=== PATIENT | female | born 1960 | race Caucasian/White ===

== ENCOUNTER 2017-07-25 06:06 | Day surgery (SDC) | payer BC ==
[2017-07-23 14:21] VITALS: BMI 26.9
[~2017-07-25 06:06] MED LIST: LACTATED RINGERS 1,000 ML IV SCH
[2017-07-25 07:02] VITALS: RESP 16; TEMP 98.6
[2017-07-25 07:14] LABS: Glucose,Whole Blood 110 mg/dL (75-99)
[2017-07-25] MEDS ORDERED: PROPOFOL 10 MG/ML 20 ML VIAL IV ONE (07:46)
[2017-07-25] MEDS ORDERED: LIDOCAINE 1% INJ 10MG/ML (20 ML MDV) ONE (07:46)
--- NOTE | 2017-07-25 07:53 | P.GSHP ---
History of Present Illness H&P Date: 07/25/17 Chief Complaint: Abdominal pain This is a 56-year-old female who presents today for colonoscopy. Patient has had complaints of abdominal pain in the right left lower quadrant. She is also had some change in bowel habits. Past Medical History Past Medical History: Asthma, Diabetes Mellitus, GERD/Reflux, Thyroid Disorder Additional Past Medical History / Comment(s): CHRONIC PAIN SYNDROME (NO RX AT THIS TIME), BACK, SACRUM & CERVICAL PAIN., BRUISE RIGHT KNEE., IBS, STATES HAVING ABDOMINAL PAIN. History of Any Multi-Drug Resistant Organisms: None Reported Past Surgical History: Hysterectomy Additional Past Surgical History / Comment(s): LAPAROSCOPIC SURERY X3 , NERVE BLOCKS FOR CHRONIC PAIN SYNDROME. Past Anesthesia/Blood Transfusion Reactions: No Reported Reaction Additional Past Anesthesia/Blood Transfusion Reaction / Comment(s): HX OF BLOOD TRANSFUSION (1983- NO REACTION) Past Psychological History: Anxiety, Depression Smoking Status: Never smoker Past Alcohol Use History: None Reported Past Drug Use History: None Reported - Past Family History Mother Family Medical History: Cancer Additional Family Medical History / Comment(s): UTERINE CANCER Father Family Medical History: Cancer Additional Family Medical History / Comment(s): MESOTHELIOMA Brother(s) Family Medical History: Cancer Additional Family Medical History / Comment(s): MELANOMA Son(s) Family Medical History: Cancer Additional Family Medical History / Comment(s): MELANOMA Medications and Allergies Home Medications Medication Instructions Recorded Confirmed Type Advair Inhaler (Unknown Dose) 1 puff INHALATION BID 07/23/17 07/25/17 History Dicyclomine [Bentyl] 20 mg PO BID 07/23/17 07/25/17 History Dulaglutide [Trulicity] 1.5 mg SQ SA 07/23/17 07/25/17 History Ezetimibe [Zetia] 10 mg PO DAILY 07/23/17 07/25/17 History Levothyroxine Sodium [Synthroid] 125 mcg PO DAILY 07/23/17 07/25/17 History Lovastatin [Mevacor] 40 mg PO DAILY 07/23/17 07/25/17 History Multivit-Min/FA/Lycopen/Lutein 1 each PO DAILY 07/23/17 07/25/17 History [Centrum Silver Tablet] Raloxifene [Evista] 60 mg PO DAILY 07/23/17 07/25/17 History Sertraline [Zoloft] 100 mg PO BID 07/23/17 07/25/17 History glipiZIDE [Glucotrol] 5 mg PO AC-BID 07/23/17 07/25/17 History Allergies Allergy/AdvReac Type Severity Reaction Status Date / Time atorvastatin [From Lipitor] Allergy Unknown Rash/Hives Verified 07/23/17 14:06 metronidazole [From Flagyl] Allergy Anaphylaxis Verified 07/25/17 07:09 naproxen [From Aleve] Allergy Swelling Verified 07/25/17 07:08 Surgical - Exam Vital Signs Temp Pulse Resp BP Pulse Ox 98.6 F 74 16 119/74 96 07/25/17 06:59 07/25/17 06:59 07/25/17 06:59 07/25/17 06:59 07/25/17 06:59 - General well developed, no distress - Eyes PERRL - ENT normal pinna - Neck no masses - Respiratory normal expansion - Cardiovascular Rhythm: regular - Abdomen Abdomen: soft, non tender Results - Labs Abnormal Lab Results - Last 24 Hours (Table) 07/25/17 Range/Units 07:11 POC Glucose (mg/dL) 110 H (75-99) mg/dL Assessment and Plan Assessment: Vital pain. Change in bowel habits. We'll perform colonoscopy.
--- NOTE | 2017-07-25 08:10 | P.OP ---
Date of Procedure: 07/25/17 Preoperative Diagnosis: Abdominal pain Postoperative Diagnosis: Normal colonoscopy Procedure(s) Performed: Colonoscopy Anesthesia: MAC Surgeon: Patrick Mohr Pathology: none sent Condition: stable Disposition: PACU Description of Procedure: PROCEDURE: The patient was placed on the endoscopy table in the lateral position. Digital rectal examination was performed which revealed no abnormalities. Flexible colonoscope was then placed in the patient's anus and passed throughout the entire colon. The ileocecal valve was visualized. The cecum, ascending, transverse, descending and sigmoid colon were normal. The rectum was normal as well. There were no masses, polyps or diverticula noted in the entire colon. SUMMARY OF FINDINGS: Normal colonoscopy.
[2017-07-25 08:31] LABS: Glucose,Whole Blood 115 mg/dL (75-99)
[2017-07-25 09:14] VITALS: BP 116/75; PULSE 89
== END 2017-07-25 09:04 | disposition home or self-care (01) ==
LOC: ORWHC2ENDO 06:06
PROVIDERS: ATTEND Surgery
DX: R19.4 Change in bowel habit (principal); R10.9 Unspecified abdominal pain; J45.909 Unspecified asthma, uncomplicated; E11.9 Type 2 diabetes mellitus without complications; K21.9 Gastro-esophageal reflux disease without esophagitis; E07.9 Disorder of thyroid, unspecified; G89.4 Chronic pain syndrome; F41.9 Anxiety disorder, unspecified; F32.9 Major depressive disorder, single episode, unspecified; M54.9 Dorsalgia, unspecified; Z79.84 Long term (current) use of oral hypoglycemic drugs; Z79.890 Hormone replacement therapy; Z79.51 Long term (current) use of inhaled steroids; Z79.899 Other long term (current) drug therapy; Z88.6 Allergy status to analgesic agent; Z88.1 Allergy status to other antibiotic agents; Z88.8 Allergy status to other drugs, medicaments and biological substances
CPT/HCPCS: 45378; J2001; J2704

== ENCOUNTER → 2017-12-31 | Outpatient (CLI) | payer BC ==
--- NOTE | 2017-12-31 10:39 | CT ---
EXAMINATION TYPE: CT abdomen pelvis w con DATE OF EXAM: 12/31/2017 COMPARISON: NONE HISTORY: 57-year-old female pain, Diverticulitis TECHNIQUE: Contiguous axial scanning of the abdomen and pelvis following administration of 100 ml Iso nawaf 300 IV contrast. Delayed images through the kidneys and coronal/sagittal reconstructions perform ed. CT DLP: 758.90 mGycm Automated exposure control for dose reduction was used. FINDINGS: Heart normal size without pericardial effusion. Strandy atelectasis or scarring in the lower lungs wi thout pleural effusion. Small hiatal hernia. Liver enlarged measuring 19.7 cm. Lobulated cyst measuring 4.5 cm and the right hepatic dome. There i s an area of adjacent peripheral vascular shunting noted. No other focal liver lesion seen. Portal ve nous system is patent no biliary ductal dilatation. Gallbladder, adrenal glands, kidneys appear within normal limits. There is some fatty atrophy of the pancreatic head and neck. Splenomegaly at 16.2 cm. No dilated small bowel, free fluid, or free air. Incidental retroaortic left renal vein. No mesenteric or retroperitoneal lymphadenopathy. Normal appendix. Moderate stool in the cecum and ascending colon. No significant diverticular change is seen. A couple diverticula may be present in the mid sigmoid. No pericolonic inflammatory change. Bladder nondistended. Uterus surgically absent. Right ovary is visualized. Left ovary not clearly see n. Multiple pelvic phleboliths. No abnormal fluid collection in the pelvis or pelvic lymphadenopathy. Bones: Degenerative disc disease throughout the lumbar spine as well as hypertrophic facet arthropath y. Changes are within moderate to severe neuroforaminal stenosis at L5-S1 in variable mild to moderat e narrowing at other levels. Grade 1 retrolisthesis at L3-L4 and L4-L5. Mild degenerative changes at the hips. IMPRESSION: 1. THERE MAY BE A COUPLE SMALL DIVERTICULA IN THE MID SIGMOID. NO SIGNIFICANT DIVERTICULAR CHANGE OR EVIDENCE FOR ACUTE DIVERTICULITIS. 2. HEPATOSPLENOMEGALY (LIVER 19.7 CM AND SPLEEN 16.2 CM ). CLINICALLY CORRELATE. 3. SMALL HIATAL HERNIA.
== END | disposition home or self-care (01) ==
LOC: RADCTMAIN 07:57
PROVIDERS: ATTEND Family Medicine
DX: R16.2 Hepatomegaly with splenomegaly, not elsewhere classified (principal); K44.9 Diaphragmatic hernia without obstruction or gangrene
CPT/HCPCS: 74177; Q9967

== ENCOUNTER 2018-01-13 08:03 | Day surgery (SDC) | payer BC ==
[2018-01-10 10:06] VITALS: BMI 26.4
[2018-01-13 08:19] VITALS: RESP 16; TEMP 98.5
[2018-01-13] MEDS ORDERED: LIDOCAINE 1% 20 ML VIAL (10MG/ML) FOR IV START INTRADERMA ONE (08:25)
[2018-01-13 08:35] LABS: Glucose,Whole Blood 168 mg/dL (75-99)
[2018-01-13] MEDS ORDERED: PROPOFOL 10 MG/ML 20 ML VIAL IV ONE (08:46)
--- NOTE | 2018-01-13 08:56 | P.GSHP ---
History of Present Illness H&P Date: 01/13/18 Chief Complaint: GERD, epigastric pain This is a 49-year-old female referred from Dr. Rachel rai. Patient presents today for EGD. She's had history of GERD. Patient has complaints of lower quadrant abdominal pain today. She states that she has continuous issues with then upset stomach. Past Medical History Past Medical History: Asthma, Diabetes Mellitus, GERD/Reflux, Thyroid Disorder Additional Past Medical History / Comment(s): CHRONIC PAIN SYNDROME (NO RX AT THIS TIME), BACK, SACRUM & CERVICAL PAIN., IBS, STATES HAVING ABDOMINAL PAIN- lower rt quad pain History of Any Multi-Drug Resistant Organisms: None Reported Past Surgical History: Hysterectomy Additional Past Surgical History / Comment(s): LAPAROSCOPIC SURERY X3 , NERVE BLOCKS FOR CHRONIC PAIN SYNDROME. Past Anesthesia/Blood Transfusion Reactions: No Reported Reaction, Motion Sickness Additional Past Anesthesia/Blood Transfusion Reaction / Comment(s): HX OF BLOOD TRANSFUSION (1983- NO REACTION) Smoking Status: Never smoker - Past Family History Mother Family Medical History: Cancer Additional Family Medical History / Comment(s): UTERINE CANCER Father Family Medical History: Cancer Additional Family Medical History / Comment(s): MESOTHELIOMA Brother(s) Family Medical History: Cancer Additional Family Medical History / Comment(s): MELANOMA Son(s) Family Medical History: Cancer Additional Family Medical History / Comment(s): MELANOMA Medications and Allergies Home Medications Medication Instructions Recorded Confirmed Type Advair Inhaler (Unknown Dose) 1 puff INHALATION DAILY 07/23/17 01/13/18 History Dulaglutide [Trulicity] 1.5 mg SQ TH 07/23/17 01/13/18 History Ezetimibe [Zetia] 10 mg PO DAILY 07/23/17 01/13/18 History Levothyroxine Sodium [Synthroid] 125 mcg PO QAM 07/23/17 01/13/18 History Lovastatin [Mevacor] 40 mg PO DAILY 07/23/17 01/13/18 History Raloxifene [Evista] 60 mg PO DAILY 07/23/17 01/13/18 History Sertraline [Zoloft] 100 mg PO BID 07/23/17 01/13/18 History glipiZIDE [Glucotrol] 5 mg PO AC-BID 07/23/17 01/13/18 History Gabapentin 600 mg PO TID 01/10/18 01/13/18 History Zolpidem Tartrate [Ambien] 10 mg PO HS 01/10/18 01/13/18 History traMADol HCL [Ultram] 50 mg PO TID PRN 01/10/18 01/13/18 History Allergies Allergy/AdvReac Type Severity Reaction Status Date / Time atorvastatin [From Lipitor] Allergy Unknown Rash/Hives Verified 01/13/18 08:26 metronidazole [From Flagyl] Allergy Anaphylaxis Verified 01/13/18 08:26 naproxen [From Aleve] Allergy Swelling Verified 01/13/18 08:26 Surgical - Exam Vital Signs Temp Pulse Resp BP Pulse Ox 98.5 F 73 16 130/81 96 01/13/18 08:18 01/13/18 08:18 01/13/18 08:18 01/13/18 08:18 01/13/18 08:18 - General well developed, no distress - Eyes PERRL - ENT normal pinna - Neck no masses - Respiratory normal expansion - Cardiovascular Rhythm: regular - Abdomen Abdomen: soft, non tender Results - Labs Abnormal Lab Results - Last 24 Hours (Table) 01/13/18 Range/Units 08:31 POC Glucose (mg/dL) 168 H (75-99) mg/dL Assessment and Plan Assessment: History of GERD Epigastric pain. We'll perform EGD.
--- NOTE | 2018-01-13 09:02 | P.OP ---
Date of Procedure: 01/13/18 Preoperative Diagnosis: GERD, abdominal pain Postoperative Diagnosis: Antral gastritis Procedure(s) Performed: EGD Anesthesia: MAC Surgeon: Patrick Mohr Pathology: other (Antrum) Condition: stable Disposition: PACU Description of Procedure: The patient's placed on the endoscopy table in the lateral position. She received IV sedation. The gastroscope placed oropharynx and passed in the esophagus and stomach. Scope was then placed through the pylorus. The first and second portion of the duodenum appeared normal. The scope was then brought back the antrum this was mildly inflamed. A biopsies performed. Scope was then retroflexed and remainder of the stomach appeared normal. The GE junction was at 40 cm. The distal esophagus appeared mildly inflamed a biopsies performed. The proximal esophagus appeared normal. Scope was withdrawn for patient. Due to the the patient's complaints of indigestion and abdominal pain. A HIDA scan was reviewed.
[2018-01-13 09:28] VITALS: BP 114/72; PULSE 72
--- NOTE | 2018-01-13 13:04 | NM ---
EXAMINATION TYPE: NM hepatobiliary w CCK DATE OF EXAM: 01/13/2018 COMPARISON: CT abdomen pelvis 12/31/2017 HISTORY: Abdominal pain TECHNIQUE: After the intravenous administration of 4.76 mCi Tc 99m Mebrofenin hepatobiliary scintigra phy is performed. Immediate images post injection. FINDINGS: There is satisfactory initial accumulation of tracer by the liver, photopenic area at the level of th e lateral aspect of the right lobe at the level of the dome of the diaphragm is compatible with large cyst. The gallbladder is visualized within 20 minutes. The small bowel activity is noted within 8 minutes. At one hour CCK was administered, patient was injected with 1.63 mcg of Kinevac, and gallbl adder ejection fraction is calculated at 94 %. Therefore there is no scintigraphic evidence of cysti c or common bile duct obstruction. IMPRESSION: Gallbladder ejection fraction 94%, additional findings above
== END 2018-01-13 10:29 | disposition home or self-care (01) ==
LOC: ORWHC2ENDO 08:03
PROVIDERS: ATTEND Surgery
DX: K29.50 Unspecified chronic gastritis without bleeding (principal); K20.9 Esophagitis, unspecified; J45.909 Unspecified asthma, uncomplicated; E11.9 Type 2 diabetes mellitus without complications; Z79.84 Long term (current) use of oral hypoglycemic drugs; E78.5 Hyperlipidemia, unspecified; E07.9 Disorder of thyroid, unspecified; G89.4 Chronic pain syndrome; K21.9 Gastro-esophageal reflux disease without esophagitis; Z79.890 Hormone replacement therapy; Z79.51 Long term (current) use of inhaled steroids; Z79.899 Other long term (current) drug therapy; Z88.6 Allergy status to analgesic agent; Z88.3 Allergy status to other anti-infective agents; Z88.8 Allergy status to other drugs, medicaments and biological substances
CPT/HCPCS: 88305; 78227; 43239; A9537; J2805; J2704

== ENCOUNTER 2018-01-29 07:06 | Day surgery (SDC) | payer BC ==
[2018-01-23 10:56] VITALS: BMI 26.2
[~2018-01-29 07:06] MED LIST changes: +DEXAMETHASONE SOD PHOSPHATE 10 MG/ML 1 ML VIAL IV ONE; +HEPARIN SODIUM,PORCINE 5,000 UNIT/ML 1 ML VIAL SQ ONE; +LIDOCAINE 1% 20 ML VIAL (10MG/ML) FOR IV START INTRADERMA PRN; +MIDAZOLAM 2 MG/2 ML VIAL IV PRN; +ONDANSETRON 4 MG/2 ML VIAL IVP ONE; +SCOPOLAMINE 1.5MG/72HR PATCH TRANSDERM ONE; +ceFAZolin IN SWFI 2 GM/20 ML SYRINGE IVP ONE
[2018-01-29 12:03] LABS: Glucose,Whole Blood 216 mg/dL (75-99)
[2018-01-29] MEDS ORDERED: LACTATED RINGERS 1,000 ML IV ONE (12:07)
--- NOTE | 2018-01-29 12:13 | P.GSHP ---
History of Present Illness H&P Date: 01/29/18 Chief Complaint: Right upper quadrant pain 's is a 57-year-old female who presents today for laparoscopic cholestatic. She has had complete the right upper quadrant pain. Her recent HIDA scan shows elevated ejection fraction of 90% consistent with biliary hyperkinesia. Past Medical History Past Medical History: Asthma, Diabetes Mellitus, GERD/Reflux, Thyroid Disorder Additional Past Medical History / Comment(s): CHRONIC PAIN SYNDROME (NO RX AT THIS TIME), BACK, SACRUM & CERVICAL PAIN., IBS, STATES HAVING ABDOMINAL PAIN- lower rt quad pain History of Any Multi-Drug Resistant Organisms: None Reported Past Surgical History: Hysterectomy Additional Past Surgical History / Comment(s): LAPAROSCOPIC SURERY X3 , NERVE BLOCKS FOR CHRONIC PAIN SYNDROME. Past Anesthesia/Blood Transfusion Reactions: No Reported Reaction, Motion Sickness Additional Past Anesthesia/Blood Transfusion Reaction / Comment(s): HX OF BLOOD TRANSFUSION (1983- NO REACTION) Smoking Status: Never smoker - Past Family History Mother Family Medical History: Cancer Additional Family Medical History / Comment(s): UTERINE CANCER Father Family Medical History: Cancer Additional Family Medical History / Comment(s): MESOTHELIOMA Brother(s) Family Medical History: Cancer Additional Family Medical History / Comment(s): MELANOMA Son(s) Family Medical History: Cancer Additional Family Medical History / Comment(s): MELANOMA Medications and Allergies Home Medications Medication Instructions Recorded Confirmed Type Advair Inhaler (Unknown Dose) 1 puff INHALATION DAILY 07/23/17 01/23/18 History Dulaglutide [Trulicity] 1.5 mg SQ TH 07/23/17 01/23/18 History Ezetimibe [Zetia] 10 mg PO DAILY 07/23/17 01/23/18 History Levothyroxine Sodium [Synthroid] 125 mcg PO QAM 07/23/17 01/23/18 History Lovastatin [Mevacor] 40 mg PO DAILY 07/23/17 01/23/18 History Raloxifene [Evista] 60 mg PO DAILY 07/23/17 01/23/18 History Sertraline [Zoloft] 100 mg PO BID 07/23/17 01/23/18 History glipiZIDE [Glucotrol] 5 mg PO AC-BID 07/23/17 01/23/18 History Gabapentin 600 mg PO TID 01/10/18 01/23/18 History Zolpidem Tartrate [Ambien] 10 mg PO HS 01/10/18 01/23/18 History traMADol HCL [Ultram] 50 mg PO TID PRN 01/10/18 01/23/18 History Allergies Allergy/AdvReac Type Severity Reaction Status Date / Time atorvastatin [From Lipitor] Allergy Unknown Rash/Hives Verified 01/23/18 10:52 metronidazole [From Flagyl] Allergy Anaphylaxis Verified 01/23/18 10:52 naproxen [From Aleve] Allergy Swelling Verified 01/23/18 10:52 metformin AdvReac Nausea & Verified 01/23/18 10:52 Vomiting Surgical - Exam Vital Signs Temp Pulse Resp BP Pulse Ox 97.8 F 79 18 136/80 97 01/29/18 12:05 01/29/18 12:05 01/29/18 12:05 01/29/18 12:05 01/29/18 12:05 - General well developed, no distress - Eyes PERRL - ENT normal pinna - Neck no masses - Respiratory normal expansion - Cardiovascular Rhythm: regular - Abdomen Abdomen: soft, non tender Results - Labs Abnormal Lab Results - Last 24 Hours (Table) 01/29/18 Range/Units 12:01 POC Glucose (mg/dL) 216 H (75-99) mg/dL Assessment and Plan Assessment: Right upper quadrant pain Chronic cholecystitis We'll perform laparoscopic cholecystectomy
[2018-01-29] MEDS ORDERED: PROPOFOL 10 MG/ML 20 ML VIAL IV ONE (13:11)
[2018-01-29] MEDS ORDERED: NEOSTIGMINE 1 MG/ML 10 ML VIAL ONE (13:11)
[2018-01-29] MEDS ORDERED: HYDROmorphone (PF) 1 MG/ML ONE (13:11)
[2018-01-29] MEDS ORDERED: ONDANSETRON 4 MG/2 ML VIAL ONE (13:11)
[2018-01-29] MEDS ORDERED: fentaNYL (PF) 50 MCG/ML 2 ML AMP ONE (13:11)
[2018-01-29] MEDS ORDERED: LIDOCAINE 1% INJ 10MG/ML (20 ML MDV) ONE (13:11)
[2018-01-29] MEDS ORDERED: MIDAZOLAM 2 MG/2 ML VIAL ONE (13:11)
[2018-01-29] MEDS ORDERED: ROCURONIUM BROMIDE 10 MG/ML 10 ML VIAL IV ONE (13:11)
[2018-01-29] MEDS ORDERED: GLYCOPYRROLATE 0.2 MG/ML 2 ML VIAL ONE (13:11)
[2018-01-29] MEDS ORDERED: BUPIVACAIN-EPI 0.25%-1:200,000 30 ML VIAL SQ ONE (13:40)
--- NOTE | 2018-01-29 14:07 | P.OP ---
Date of Procedure: 01/29/18 Preoperative Diagnosis: Chronic cholecystitis Postoperative Diagnosis: Chronic cholecystitis Procedure(s) Performed: Laparoscopic cholecystectomy Anesthesia: ABIGAIL Surgeon: Patrick Mohr Estimated Blood Loss (ml): 5 Pathology: other (Gallbladder) Condition: stable Disposition: PACU Description of Procedure: The patient was placed on the operating table. The patient received a general endotracheal tube anesthesia. The patients abdomen was prepped and draped in the usual sterile fashion. Through an infraumbilical stab incision, the fascia of the anterior abdominal wall was grasped with a pair of Kochers and then the Veress needle was placed in the peritoneal cavity. Position of the Veress needle was confirmed with positive drop test. The abdomen was then insufflated. After adequate insufflation, the 10 mm trocar was placed in the peritoneal cavity. Following this the laparoscope was placed in the peritoneal cavity. The patient was placed in the head-up, right side up position and then a 5 mm trocar was placed in the right lateral and right subcostal position under direct visualization. A 8 mm trocar was placed in the epigastric position. The gallbladder was grasped in the fundus and infundibulum. Traction on the gallbladder was placed in the lateral and the cephalad positions. The triangle of Calot was visualized.. The cystic duct was bluntly dissected until the union of the cystic duct and common bile duct was seen. The cystic duct was then divided and sealed with the Harmonic scissors. A PDS Endoloop was then placed throughout the cystic duct stump. The cystic artery divided and sealed with the Harmonic scissors. The gallbladder was then removed from the liver bed using Harmonic scissors. The gallbladder was then extracted through the epigastric port site. Operative field was checked for any bleeding spots and Harmonic scissors was used to coagulate the liver bed. The abdomen was irrigated. The trocars were removed. The skin was closed using interrupted 3-0 Vicryl suture. Dermabond dressing were applied. The patient tolerated the procedure well.
[2018-01-29] MEDS: HYDROmorphone 0.5 MG/0.5 ML SYRINGE IVP PRN ×3 (14:29→14:50)
[2018-01-29 14:44] VITALS: TEMP 97
[2018-01-29 15:05] LABS: Glucose,Whole Blood 238 mg/dL (75-99)
[2018-01-29] MEDS ORDERED: INSULIN ASPART 100 UNIT/ML 1 ML 10 ML VIAL SQ ONE (15:10)
[2018-01-29 15:14] VITALS: RESP 18
[2018-01-29 15:45] VITALS: BP 118/72; PULSE 95
== END 2018-01-29 16:19 | disposition home or self-care (01) ==
LOC: OR 07:06
PROVIDERS: ATTEND Surgery
DX: K81.1 Chronic cholecystitis (principal); J45.909 Unspecified asthma, uncomplicated; E11.9 Type 2 diabetes mellitus without complications; K21.9 Gastro-esophageal reflux disease without esophagitis; E07.9 Disorder of thyroid, unspecified; G89.4 Chronic pain syndrome; Z80.49 Family history of malignant neoplasm of other genital organs; Z80.8 Family history of malignant neoplasm of other organs or systems; Z79.84 Long term (current) use of oral hypoglycemic drugs; Z79.890 Hormone replacement therapy; Z79.899 Other long term (current) drug therapy; Z88.6 Allergy status to analgesic agent; Z88.1 Allergy status to other antibiotic agents; Z88.8 Allergy status to other drugs, medicaments and biological substances
CPT/HCPCS: 88304; 47562; J2250; J1644; J1100; J2710; J2405; J2001; J3010; J1170 ×2; J2704; J0690

== ENCOUNTER 2020-01-06 15:20 | Inpatient (IN) | payer BC ==
[2020-01-06] MEDS ORDERED: SODIUM CHLORIDE 0.9% 1,000 ML IV STA (15:41)
[2020-01-06] MEDS ORDERED: HYDROmorphone 0.5 MG/0.5 ML SYRINGE IVP STA (15:47)
[2020-01-06] MEDS ORDERED: ONDANSETRON 4 MG/2 ML VIAL IVP STA (15:47)
--- NOTE | 2020-01-06 15:55 | ED ---
Abdominal Pain HPI - General Chief Complaint: Abdominal Pain Stated Complaint: appendix Time Seen by Provider: 01/06/20 15:25 Source: patient, RN notes reviewed Mode of arrival: wheelchair Limitations: no limitations - History of Present Illness Initial Comments: This is a 59-year-old female presents emergency Department chief complaint of abdominal pain. Patient had persistent worsening abdominal pain last several weeks. Patient states last 2 days the pain has become unbearable. Patient states it's in her lower abdomen primarily right-sided. Patient is concerned about her appendix. Patient's had multiple colonoscopies in the past with no significant findings. Patient states that some GI issues last one year. Patient had hysterectomy related to endometriosis. Patient denies any fever states that she's had chills. Denies any chest pain or shortness breath she has meant to nausea vomiting or sick contacts. - Related Data Home Medications Medication Instructions Recorded Confirmed Advair Inhaler (Unknown Dose) 1 puff INHALATION DAILY 07/23/17 01/23/18 Dulaglutide [Trulicity] 1.5 mg SQ TH 07/23/17 01/23/18 Ezetimibe [Zetia] 10 mg PO DAILY 07/23/17 01/23/18 Levothyroxine Sodium [Synthroid] 125 mcg PO QAM 07/23/17 01/23/18 Lovastatin [Mevacor] 40 mg PO DAILY 07/23/17 01/23/18 Raloxifene [Evista] 60 mg PO DAILY 07/23/17 01/23/18 Sertraline [Zoloft] 100 mg PO BID 07/23/17 01/23/18 glipiZIDE [Glucotrol] 5 mg PO AC-BID 07/23/17 01/23/18 Gabapentin 600 mg PO TID 01/10/18 01/23/18 Zolpidem Tartrate [Ambien] 10 mg PO HS 01/10/18 01/23/18 traMADol HCL [Ultram] 50 mg PO TID PRN 01/10/18 01/23/18 Previous Rx's Medication Instructions Recorded Docusate [Colace] 100 mg PO BID #20 capsule 01/29/18 HYDROcodone/APAP 7.5-325MG [[place] 1 tab PO Q4H PRN 3 Days #18 tab 01/29/18 7.5-325] Allergies Allergy/AdvReac Type Severity Reaction Status Date / Time atorvastatin [From Lipitor] Allergy Unknown Rash/Hives Verified 01/06/20 15:25 metronidazole [From Flagyl] Allergy Anaphylaxis Verified 01/06/20 15:25 naproxen [From Aleve] Allergy Swelling Verified 01/06/20 15:25 metformin AdvReac Nausea & Verified 01/06/20 15:25 Vomiting Review of Systems ROS Statement: Those systems with pertinent positive or pertinent negative responses have been documented in the HPI. ROS Other: All systems not noted in ROS Statement are negative. Past Medical History Past Medical History: Asthma, Diabetes Mellitus, GERD/Reflux, Thyroid Disorder Additional Past Medical History / Comment(s): CHRONIC PAIN SYNDROME (NO RX AT THIS TIME), BACK, SACRUM & CERVICAL PAIN., IBS, STATES HAVING ABDOMINAL PAIN- lower rt quad pain History of Any Multi-Drug Resistant Organisms: None Reported Past Surgical History: Hysterectomy Additional Past Surgical History / Comment(s): LAPAROSCOPIC SURERY X3 , NERVE BLOCKS FOR CHRONIC PAIN SYNDROME. Past Anesthesia/Blood Transfusion Reactions: No Reported Reaction, Motion Sickness Additional Past Anesthesia/Blood Transfusion Reaction / Comment(s): HX OF BLOOD TRANSFUSION (1983- NO REACTION) Past Psychological History: Anxiety, Depression Past Alcohol Use History: None Reported Past Drug Use History: None Reported - Past Family History Mother Family Medical History: Cancer Additional Family Medical History / Comment(s): UTERINE CANCER Father Family Medical History: Cancer Additional Family Medical History / Comment(s): MESOTHELIOMA Brother(s) Family Medical History: Cancer Additional Family Medical History / Comment(s): MELANOMA Son(s) Family Medical History: Cancer Additional Family Medical History / Comment(s): MELANOMA General Exam Limitations: no limitations General appearance: alert, in no apparent distress Head exam: Present: atraumatic, normocephalic, normal inspection Eye exam: Present: normal appearance, PERRL, EOMI. Absent: scleral icterus, conjunctival injection, periorbital swelling ENT exam: Present: normal exam, normal oropharynx, mucous membranes moist Neck exam: Present: normal inspection, other. Absent: tenderness, meningismus, lymphadenopathy Respiratory exam: Present: normal lung sounds bilaterally. Absent: respiratory distress, wheezes, rales, rhonchi, stridor Cardiovascular Exam: Present: normal rhythm, tachycardia, normal heart sounds. Absent: systolic murmur, diastolic murmur, rubs, gallop, clicks GI/Abdominal exam: Present: soft, tenderness (Moderate lower abdominal tenderness), normal bowel sounds. Absent: distended, guarding, rebound, rigid Back exam: Absent: CVA tenderness (R), CVA tenderness (L) Neurological exam: Present: alert, oriented X3 Skin exam: Present: warm, dry, intact, normal color. Absent: rash Course Vital Signs 01/06/20 01/06/20 01/06/20 15:21 15:24 16:24 Temperature 98.5 F Pulse Rate 116 H Respiratory 16 18 18 Rate Blood Pressure 141/87 O2 Sat by Pulse 98 Oximetry Medical Decision Making - Medical Decision Making Patient continues to have significant Pain in her abdomen. CT shows evidence of colitis. Patient be admitted for GI consult, further evaluation. - Lab Data Result diagrams: 01/06/20 16:00 01/06/20 16:00 Lab Results 01/06/20 01/06/20 01/06/20 Range/Units 16:00 16:00 16:00 WBC 4.9 (3.8-10.6) k/uL RBC 4.81 (3.80-5.40) m/uL Hgb 14.1 (11.4-16.0) gm/dL Hct 42.4 (34.0-46.0) % MCV 88.1 (80.0-100.0) fL MCH 29.3 (25.0-35.0) pg MCHC 33.2 (31.0-37.0) g/dL RDW 12.8 (11.5-15.5) % Plt Count 146 L (150-450) k/uL Neutrophils % 59 % Lymphocytes % 29 % Monocytes % 7 % Eosinophils % 2 % Basophils % 1 % Neutrophils # 2.9 (1.3-7.7) k/uL Lymphocytes # 1.4 (1.0-4.8) k/uL Monocytes # 0.3 (0-1.0) k/uL Eosinophils # 0.1 (0-0.7) k/uL Basophils # 0.0 (0-0.2) k/uL Sodium 137 (137-145) mmol/L Potassium 3.9 (3.5-5.1) mmol/L Chloride 105 (98-107) mmol/L Carbon Dioxide 24 (22-30) mmol/L Anion Gap 8 mmol/L BUN 14 (7-17) mg/dL Creatinine 0.86 (0.52-1.04) mg/dL Est GFR (CKD-EPI)AfAm 86 (>60 ml/min/1.73 sqM) Est GFR (CKD-EPI)NonAf 74 (>60 ml/min/1.73 sqM) Glucose 115 H (74-99) mg/dL Plasma Lactic Acid Yosvany 0.9 (0.7-2.0) mmol/L Calcium 9.9 (8.4-10.2) mg/dL Total Bilirubin 0.6 (0.2-1.3) mg/dL AST 96 H (14-36) U/L ALT 84 H (4-34) U/L Alkaline Phosphatase 121 (38-126) U/L Total Protein 8.1 (6.3-8.2) g/dL Albumin 4.6 (3.5-5.0) g/dL Amylase 68 (30-110) U/L Lipase 99 (23-300) U/L Urine Color Urine Appearance (Clear) Urine pH (5.0-8.0) Ur Specific [place] (1.001-1.035) Urine Protein (Negative) Urine Glucose (UA) (Negative) Urine Ketones (Negative) Urine Blood (Negative) Urine Nitrite (Negative) Urine Bilirubin (Negative) Urine Urobilinogen (<2.0) mg/dL Ur Leukocyte Esterase (Negative) Urine RBC (0-5) /hpf Urine WBC (0-5) /hpf Ur Squamous Epith Cells (0-4) /hpf Hyaline Casts (0-2) /lpf Urine Mucus (None) /hpf 01/06/20 Range/Units 17:00 WBC (3.8-10.6) k/uL RBC (3.80-5.40) m/uL Hgb (11.4-16.0) gm/dL Hct (34.0-46.0) % MCV (80.0-100.0) fL MCH (25.0-35.0) pg MCHC (31.0-37.0) g/dL RDW (11.5-15.5) % Plt Count (150-450) k/uL Neutrophils % % Lymphocytes % % Monocytes % % Eosinophils % % Basophils % % Neutrophils # (1.3-7.7) k/uL Lymphocytes # (1.0-4.8) k/uL Monocytes # (0-1.0) k/uL Eosinophils # (0-0.7) k/uL Basophils # (0-0.2) k/uL Sodium (137-145) mmol/L Potassium (3.5-5.1) mmol/L Chloride (98-107) mmol/L Carbon Dioxide (22-30) mmol/L Anion Gap mmol/L BUN (7-17) mg/dL Creatinine (0.52-1.04) mg/dL Est GFR (CKD-EPI)AfAm (>60 ml/min/1.73 sqM) Est GFR (CKD-EPI)NonAf (>60 ml/min/1.73 sqM) Glucose (74-99) mg/dL Plasma Lactic Acid [place] (0.7-2.0) mmol/L Calcium (8.4-10.2) mg/dL Total Bilirubin (0.2-1.3) mg/dL AST (14-36) U/L ALT (4-34) U/L Alkaline Phosphatase (38-126) U/L Total Protein (6.3-8.2) g/dL Albumin (3.5-5.0) g/dL Amylase (30-110) U/L Lipase (23-300) U/L Urine Color Yellow Urine Appearance Clear (Clear) Urine pH 5.5 (5.0-8.0) Ur Specific [place] 1.028 (1.001-1.035) Urine Protein Trace H (Negative) Urine Glucose (UA) Negative (Negative) Urine Ketones Negative (Negative) Urine Blood Negative (Negative) Urine Nitrite Negative (Negative) Urine Bilirubin Negative (Negative) Urine Urobilinogen <2.0 (<2.0) mg/dL Ur Leukocyte Esterase Small H (Negative) Urine RBC 1 (0-5) /hpf Urine WBC 13 H (0-5) /hpf Ur Squamous Epith Cells 3 (0-4) /hpf Hyaline Casts 3 H (0-2) /lpf Urine Mucus Occasional H (None) /hpf Disposition Clinical Impression: Abdominal pain, Colitis Disposition: ADMITTED IP TO THIS HOSP Condition: Fair Referrals: Chris Duval MD [Primary Care Provider] - 1-2 days
[2020-01-06 16:14] LABS: Basophils % (A) 1 %; Eosinophils # (A) 0.1 k/uL (0-0.7); Eosinophils % (A) 2 %; HCT 42.4 % (34.0-46.0); HGB 14.1 gm/dL (11.4-16.0); Lymphocytes # (A) 1.4 k/uL (1.0-4.8); Lymphocytes % (A) 29 %; MCH 29.3 pg (25.0-35.0); MCHC 33.2 g/dL (31.0-37.0); MCV 88.1 fL (80.0-100.0); Monocytes # (A) 0.3 k/uL (0-1.0); Monocytes % (A) 7 %; Neutrophils # (A) 2.9 k/uL (1.3-7.7); Neutrophils % (A) 59 %; Platelet Count 146 k/uL (150-450); RBC 4.81 m/uL (3.80-5.40); RDW 12.8 % (11.5-15.5); WBC 4.9 k/uL (3.8-10.6)
[2020-01-06 16:21] LABS: Albumin 4.6 g/dL (3.5-5.0); Calcium 9.9 mg/dL (8.4-10.2); Potassium 3.9 mmol/L (3.5-5.1); Total Bilirubin 0.6 mg/dL (0.2-1.3); Total Protein 8.1 g/dL (6.3-8.2)
--- NOTE | 2020-01-06 17:23 | CT ---
EXAMINATION TYPE: CT abdomen pelvis w con DATE OF EXAM: 01/06/2020 HISTORY: Right lower quadrant pain. Changes in bowel habits, difficulty with urination and nausea and vomiting. CT DLP: 928.7mGycm Automated Exposure Control for Dose Reduction was Utilized. CONTRAST: CT scan of the abdomen and pelvis is performed without oral but with IV Contrast, patient injected wi th 100 mL of Isovue 300. COMPARISON: CT abdomen and pelvis December 31, 2017 FINDINGS: LUNG BASES: Anterior mild to moderate bibasilar linear scarring remains present. LIVER/GB: Slightly lobulated thin-walled cyst now measures 6.2 x 5.4 cm image 13 increased in size fr om prior. Persistent adjacent vascular shunting inferior right lateral aspect near axial image 16. Li susana size stable and upper limits of normal. Gallbladder not seen and presumed surgically absent or ma rkedly contracted. Mild fat stranding or haziness right lower quadrant along the lateral margin of th e right colon for reference axial image 53 and 59. PANCREAS: Mild fat replaced atrophy at head and neck level redemonstrated. SPLEEN: Stable splenomegaly at 15.5 cm axial image 17. ADRENALS: No significant abnormality is seen. KIDNEYS: No significant abnormality is seen. BOWEL: Stable small sized hiatal hernia. Suboptimal evaluation without enteric contrast. Stomach poor ly distended and thus suboptimally evaluated. No suspicious small or large bowel dilatation. Low-lyin g cecum into the anterior right pelvis. Moderate fecal prominence in the right colon. And appendix me asures up to 6 mm in size without surrounding fat stranding in the pelvis. Mild wall thickening left and sigmoid colon with decompression. Gas prominence rectum. UTERUS/ADNEXA: Uterus surgically absent or markedly atrophic. Multiple scattered bilateral pelvic phl eboliths. LYMPH NODES: No greater than 1cm abdominal or pelvic lymph nodes are appreciated. OSSEOUS STRUCTURES: Spine is straightened with multilevel moderate spurring and disc space narrowing along with multilevel vacuum disc phenomenon. Multilevel subtle spondylolisthesis. Multilevel facet a rthropathy in the mid to lower lumbar spine. OTHER: No significant additional abnormality is seen. IMPRESSION: Suspect mild uncomplicated acute colitis in the right lower quadrant involving the ascend ing colon. Correlate clinically.
[2020-01-06 17:24] LABS: Appearance,Urine Clear (Clear); Bilirubin,Urine Negative (Negative); Blood,Urine Negative (Negative); Color,Urine Yellow; Glucose,Urine (UA) Negative (Negative); Hyaline Casts,Urine 3 /lpf (0-2); Ketones,Urine Negative (Negative); Leukocyte Esterase,Urine Small (Negative); Mucus,Urine Occasional /hpf; Nitrite,Urine Negative (Negative); PH, Urine 5.5 (5.0-8.0); Protein,Urine Trace (Negative); RBC,Urine 1 /hpf (0-5); Specific Gravity,Urine 1.028 (1.001-1.035); Squamous Epithelial Cell,Urine 3 /hpf (0-4); Urobilinogen,Urine <2.0 mg/dL (<2.0); WBC,Urine 13 /hpf (0-5)
[2020-01-06] MEDS ORDERED: NALOXONE 0.4 MG/ML 1 ML VIAL IV PRN (17:34)
[2020-01-06] MEDS: ACETAMINOPHEN TAB 325 MG TAB PO PRN (18:21)
[2020-01-06] MEDS: SODIUM CHLORIDE 0.9% 1,000 ML IV SCH (18:22)
[2020-01-06] MEDS: HYDROmorphone 0.5 MG/0.5 ML SYRINGE IVP PRN ×2 (18:43→23:25)
[2020-01-06] MEDS: ONDANSETRON 4 MG/2 ML VIAL IVP PRN (18:44)
[2020-01-06] MEDS ORDERED: ZOLPIDEM 10 MG TAB PO SCH (21:00)
[2020-01-06] MEDS: PIPERACILLIN-TAZOBACTAM 3.375 GM in SODIUM CHLORIDE 0.9% 100 ML IVPB SCH (21:18)
[2020-01-06 21:27] LABS: Glucose,Whole Blood 89 mg/dL (75-99)
[2020-01-06] MEDS: glipiZIDE 5 MG TAB PO SCH (21:27)
[2020-01-06] MEDS: valACYclovir HCL 1,000 MG TABLET PO SCH (21:28)
[2020-01-06] MEDS: SERTRALINE 100 MG TAB PO SCH (21:28)
[2020-01-06] MEDS: ZOLPIDEM 5 MG TAB PO SCH (23:22)
[2020-01-07] MEDS: PIPERACILLIN-TAZOBACTAM 3.375 GM in SODIUM CHLORIDE 0.9% 100 ML IVPB SCH ×3 (03:52→21:04)
[2020-01-07] MEDS: SODIUM CHLORIDE 0.9% 1,000 ML IV SCH ×3 (03:52→20:45)
[2020-01-07 06:45] LABS: Glucose,Whole Blood 101 mg/dL (75-99)
[2020-01-07] MEDS: HYDROmorphone 0.5 MG/0.5 ML SYRINGE IVP PRN ×3 (07:46→19:17)
[2020-01-07] MEDS: ONDANSETRON 4 MG/2 ML VIAL IVP PRN (10:11)
[2020-01-07 11:54] LABS: Glucose,Whole Blood 117 mg/dL (75-99)
[2020-01-07] MEDS: SERTRALINE 100 MG TAB PO SCH ×2 (12:01→21:03)
[2020-01-07] MEDS: PANTOPRAZOLE 40 MG TABLET PO SCH (12:15)
[2020-01-07] MEDS: glipiZIDE 5 MG TAB PO SCH ×2 (12:16→21:04)
[2020-01-07] MEDS: LEVOTHYROXINE 75 MCG TAB PO SCH (12:16)
[2020-01-07] MEDS: valACYclovir HCL 1,000 MG TABLET PO SCH ×2 (12:17→21:04)
--- NOTE | 2020-01-07 15:40 | P.CONS ---
History of Present Illness - Reason for Consult Consult date: 01/07/20 - History of Present Illness CHIEF COMPLAINT: Abdominal pain HISTORY OF PRESENT ILLNESS: This is a 59-year-old female with a known past medical history of diabetes, asthma, hypothyroidism, irritable bowel syndrome, post cystectomy and previous hysterectomy for endometriosis. Patient reports having mostly of right sided abdominal pain with nausea and vomiting 1 week. Patient reports decrease in her appetite. She reports that she will vomit even with movement. She missed some sweats. Denies any fevers. Her last colonoscopy was about 3 years ago. She has been admitted for acute colitis and has been started on IV Zosyn. We have been consulted in regards patient's abdominal pain. PAST MEDICAL HISTORY: See list. PAST SURGICAL HISTORY: See list. MEDICATIONS: See list. ALLERGIES: See list. SOCIAL HISTORY: No illicit drug use. REVIEW OF SYSTEMS: CONSTITUTIONAL: Denies fever or chills. HEENT: Denies blurred vision, vision changes, or eye pain. Denies hemoptysis CARDIOVASCULAR: Denies chest pain or pressure. RESPIRATORY: No shortness of breath. GASTROINTESTINAL: See HPI for pertinent findings HEMATOLOGIC: Denies bleeding disorders. GENITOURINARY: Denies any blood in urine or increased urinary frequency. SKIN: Denies pruitis. Denies rash. PHYSICAL EXAM: VITAL SIGNS: Reviewed GENERAL: Well-developed in no acute distress. HEENT: No sclera icterus. Extraocular movements grossly intact. Moist buccal mucosa. Head is atraumatic, normocephalic. No nasal drainage. ABDOMEN: Soft. Nondistended. Right sided abdominal pain with palpation and guarding present NEUROLOGIC: Alert and oriented. Cranial nerves II through XII grossly intact. LABORATORY DATA: WBC 4.9, lactic 0.9, AST 96, ALT 84 IMAGING: Computed tomography scan of the abdomen and pelvis shows mild uncomplicated acute colitis in the right lower quadrant ASSESSMENT: 1. Acute colitis 2. Abdominal pain 3. Nausea and vomiting PLAN: -Continue IV antibiotics with Zosyn -Continue clear liquid diet -Recommend outpatient colonoscopy Physician Char Filter Tank Tender note has been reviewed by physician. Signing provider agrees with the documented findings, assessment, and plan of care. Past Medical History Past Medical History: Asthma, Diabetes Mellitus, GERD/Reflux, Thyroid Disorder Additional Past Medical History / Comment(s): CHRONIC PAIN SYNDROME (NO RX AT THIS TIME), BACK, SACRUM & CERVICAL PAIN. History of Any Multi-Drug Resistant Organisms: None Reported Past Surgical History: Cholecystectomy, Hysterectomy Additional Past Surgical History / Comment(s): LAPAROSCOPIC SURERY X3 , 4 NERVE BLOCKS FOR CHRONIC PAIN SYNDROME. Past Anesthesia/Blood Transfusion Reactions: No Reported Reaction, Motion Sickness Additional Past Anesthesia/Blood Transfusion Reaction / Comm: HX OF BLOOD TRANSFUSION (1983- NO REACTION) Past Psychological History: Anxiety, Depression Smoking Status: Never smoker Past Alcohol Use History: None Reported Past Drug Use History: None Reported - Past Family History Mother Family Medical History: Cancer Additional Family Medical History / Comment(s): UTERINE CANCER Father Family Medical History: Cancer Additional Family Medical History / Comment(s): MESOTHELIOMA Brother(s) Family Medical History: Cancer Additional Family Medical History / Comment(s): MELANOMA Son(s) Family Medical History: Cancer Additional Family Medical History / Comment(s): MELANOMA Medications and Allergies Home Medications Medication Instructions Recorded Confirmed Type Dulaglutide [Trulicity] 1.5 mg SQ SMITH 07/23/17 01/06/20 History Raloxifene [Evista] 60 mg PO DAILY 07/23/17 01/06/20 History Sertraline [Zoloft] 100 mg PO BID 07/23/17 01/06/20 History Zolpidem Tartrate [Ambien] 10 mg PO HS 01/10/18 01/06/20 History traMADol HCL [Ultram] 50 mg PO TID 01/10/18 01/06/20 History Azelastine HCl 1 - 2 spray EA NOSTRIL BID PRN 01/06/20 01/06/20 History Ergocalciferol [Vitamin D2] 50,000 unit PO MO 01/06/20 01/06/20 History Esomeprazole Magnesium [NexIUM 20 mg PO BID 01/06/20 01/06/20 History 24Hr] Fluticasone Nasal [place] [Flonase 2 spr EA NOSTRIL DAILY PRN 01/06/20 01/06/20 History Nasal [place]] Levothyroxine Sodium [Synthroid] 150 mcg PO DAILY 01/06/20 01/06/20 History glipiZIDE XL [Glucotrol Xl] 5 mg PO BID 01/06/20 01/06/20 History guaiFENesin [Mucinex] 600 mg PO HS 01/06/20 01/06/20 History valACYclovir HCL [Valtrex] 1,000 mg PO BID 01/06/20 01/06/20 History Allergies Allergy/AdvReac Type Severity Reaction Status Date / Time atorvastatin [From Lipitor] Allergy Unknown Rash/Hives Verified 01/06/20 18:21 metronidazole [From Flagyl] Allergy Anaphylaxis Verified 01/06/20 18:21 naproxen [From Aleve] Allergy Swelling Verified 01/06/20 18:21 metformin AdvReac Nausea & Verified 01/06/20 18:21 Vomiting Physical Exam Vitals: Vital Signs Temp Pulse Pulse Resp BP BP Pulse Ox 01/07/20 09:00 98.3 F 60 18 102/54 95 01/07/20 03:59 70 15 01/07/20 03:54 97.9 F 70 15 115/56 97 01/06/20 23:30 110/58 01/06/20 20:10 67 16 01/06/20 19:59 98.3 F 67 16 112/65 94 L 01/06/20 18:12 98.5 F 69 18 107/83 100 01/06/20 18:08 97.6 F 64 14 132/78 98 01/06/20 18:00 69 18 107/83 100 01/06/20 17:00 73 18 129/75 100 01/06/20 16:24 18 Intake and Output 01/07/20 01/07/20 01/07/20 06:59 14:59 22:59 Intake Total 100 500 Balance 100 500 Intake: Intake, IV Titration 100 500 Amount Piperacillin-Tazobactam 3 100 500 .375 gm In Sodium Chloride 0.9% 100 ml @ 25 mls/hr IVPB Q8H [facility] Rx#: [id number] Other: Voiding Method Toilet Toilet # Voids 2 Results CBC & Chem 7: 01/06/20 16:00 01/06/20 16:00 Labs: Abnormal Lab Results - Last 24 Hours (Table) 01/06/20 01/06/20 01/06/20 Range/Units 16:00 16:00 17:00 Plt Count 146 L (150-450) k/uL Glucose 115 H (74-99) mg/dL POC Glucose (mg/dL) (75-99) mg/dL AST 96 H (14-36) U/L ALT 84 H (4-34) U/L Urine Protein Trace H (Negative) Ur Leukocyte Esterase Small H (Negative) Urine WBC 13 H (0-5) /hpf Hyaline Casts 3 H (0-2) /lpf Urine Mucus Occasional H (None) /hpf 01/07/20 01/07/20 Range/Units 06:42 11:53 Plt Count (150-450) k/uL Glucose (74-99) mg/dL POC Glucose (mg/dL) 101 H 117 H (75-99) mg/dL AST (14-36) U/L ALT (4-34) U/L Urine Protein (Negative) Ur Leukocyte Esterase (Negative) Urine WBC (0-5) /hpf Hyaline Casts (0-2) /lpf Urine Mucus (None) /hpf Microbiology - Last 24 Hours (Table) 01/06/20 17:00 Urine Culture - Preliminary Urine,Voided
[2020-01-07 16:40] LABS: Glucose,Whole Blood 143 mg/dL (75-99)
[2020-01-07] MEDS: ACETAMINOPHEN TAB 325 MG TAB PO PRN (16:54)
[2020-01-07 21:02] LABS: Glucose,Whole Blood 125 mg/dL (75-99)
[2020-01-07] MEDS: ZOLPIDEM 5 MG TAB PO SCH (21:03)
--- NOTE | 2020-01-07 22:20 | P.HPIM ---
History of Present Illness H&P Date: 01/07/20 Chief Complaint: RLQ pain Brianne Reyes is a 59 yo F with PMH of IBS, endometriosis s/p hysterectomy, T2DM, hypothyroid who presented to the ED with progressive RLQ and lower abdominal pain. She states that over the past few weeks she has noticed increasing cramping and sharp pains initially just with eating but now becoming more frequent. She states she tried to ride her horse a few days ago and after had severe cramping pain. She also complains of nausea and vomiting, having thrown up right when waking up the morning of admission. On presentation she was tachycardic and hypertensive, WBC 4.9, AST/ALT elevated, CRP <5. CT with uncomplicated R colitis. Review of Systems All systems: negative Constitutional: Reports malaise, Reports weakness, Denies chills, Denies fever Eyes: denies blurred vision, denies pain Ears, nose, mouth and throat: Denies headache, Denies sore throat Cardiovascular: Denies chest pain, Denies shortness of breath Respiratory: Denies cough Gastrointestinal: Reports abdominal pain, Reports bloating, Reports loss of appetite, Reports nausea, Reports vomiting, Denies diarrhea Genitourinary: Denies dysuria, Denies hematuria Musculoskeletal: Denies myalgias Integumentary: Denies pruritus, Denies rash Neurological: Denies numbness, Denies weakness Psychiatric: Denies anxiety, Denies depression Endocrine: Denies fatigue, Denies weight change Past Medical History Past Medical History: Asthma, Diabetes Mellitus, GERD/Reflux, Thyroid Disorder Additional Past Medical History / Comment(s): CHRONIC PAIN SYNDROME (NO RX AT THIS TIME), BACK, SACRUM & CERVICAL PAIN. History of Any Multi-Drug Resistant Organisms: None Reported Past Surgical History: Cholecystectomy, Hysterectomy Additional Past Surgical History / Comment(s): LAPAROSCOPIC SURERY X3 , 4 NERVE BLOCKS FOR CHRONIC PAIN SYNDROME. Past Anesthesia/Blood Transfusion Reactions: No Reported Reaction, Motion Sickness Additional Past Anesthesia/Blood Transfusion Reaction / Comment(s): HX OF BLOOD TRANSFUSION (1983- NO REACTION) Past Psychological History: Anxiety, Depression Smoking Status: Never smoker Past Alcohol Use History: None Reported Past Drug Use History: None Reported - Past Family History Mother Family Medical History: Cancer Additional Family Medical History / Comment(s): UTERINE CANCER Father Family Medical History: Cancer Additional Family Medical History / Comment(s): MESOTHELIOMA Brother(s) Family Medical History: Cancer Additional Family Medical History / Comment(s): MELANOMA Son(s) Family Medical History: Cancer Additional Family Medical History / Comment(s): MELANOMA Medications and Allergies Home Medications Medication Instructions Recorded Confirmed Type Dulaglutide [Trulicity] 1.5 mg SQ [place] 07/23/17 01/06/20 History Raloxifene [Evista] 60 mg PO DAILY 07/23/17 01/06/20 History Sertraline [Zoloft] 100 mg PO BID 07/23/17 01/06/20 History Zolpidem Tartrate [Ambien] 10 mg PO HS 01/10/18 01/06/20 History traMADol HCL [Ultram] 50 mg PO TID 01/10/18 01/06/20 History Azelastine HCl 1 - 2 spray EA NOSTRIL BID PRN 01/06/20 01/06/20 History Ergocalciferol [Vitamin D2] 50,000 unit PO MO 01/06/20 01/06/20 History Esomeprazole Magnesium [NexIUM 20 mg PO BID 01/06/20 01/06/20 History 24Hr] Fluticasone Nasal [place] [Flonase 2 spr EA NOSTRIL DAILY PRN 01/06/20 01/06/20 History Nasal [place]] Levothyroxine Sodium [Synthroid] 150 mcg PO DAILY 01/06/20 01/06/20 History glipiZIDE XL [Glucotrol Xl] 5 mg PO BID 01/06/20 01/06/20 History guaiFENesin [Mucinex] 600 mg PO HS 01/06/20 01/06/20 History valACYclovir HCL [Valtrex] 1,000 mg PO BID 01/06/20 01/06/20 History Allergies Allergy/AdvReac Type Severity Reaction Status Date / Time atorvastatin [From Lipitor] Allergy Unknown Rash/Hives Verified 01/06/20 18:21 metronidazole [From Flagyl] Allergy Anaphylaxis Verified 01/06/20 18:21 naproxen [From Aleve] Allergy Swelling Verified 01/06/20 18:21 metformin AdvReac Nausea & Verified 01/06/20 18:21 Vomiting Physical Exam Vitals: Vital Signs Temp Pulse Resp BP Pulse Ox 01/07/20 21:10 69 16 01/07/20 19:24 98.1 F 69 16 118/71 97 01/07/20 15:00 97.8 F 66 18 97/55 01/07/20 09:00 98.3 F 60 18 102/54 95 01/07/20 03:59 70 15 01/07/20 03:54 97.9 F 70 15 115/56 97 01/06/20 23:30 110/58 Intake and Output 01/07/20 01/07/20 01/07/20 06:59 14:59 22:59 Intake Total 100 500 200 Balance 100 500 200 Intake: Intake, IV Titration 100 500 Amount Piperacillin-Tazobactam 3 100 500 .375 gm In Sodium Chloride 0.9% 100 ml @ 25 mls/hr IVPB Q8H [facility] Rx#: [id number] Other 200 Other: Voiding Method Toilet Toilet Toilet # Voids 2 # Bowel Movements 1 General: well nourished, well developed, NAD. Vitals reviewed Eyes: PERRL, EOMI, conjunctiva normal HENT: normocephalic, mucus membranes moist Neck: supple, no JVD Lungs: normal respiratory effort, no wheezes or rales CV: Regular rate and rhythm, no murmur. Peripheral pulses 2+ Abdomen: soft, nondistended, no organomegaly. Generalized abdominal tenderness, worst RLQ Lymph: no cervical or axillary LAD Skin: warm and dry. Neuro: A&Ox3, normal mood and affect Results CBC & Chem 7: 01/06/20 16:00 01/06/20 16:00 Labs: Abnormal Lab Results - Last 24 Hours (Table) 01/07/20 01/07/20 01/07/20 Range/Units 06:42 11:53 16:38 POC Glucose (mg/dL) 101 H 117 H 143 H (75-99) mg/dL 01/07/20 Range/Units 21:00 POC Glucose (mg/dL) 125 H (75-99) mg/dL Microbiology - Last 24 Hours (Table) 01/06/20 17:00 Urine Culture - Final Urine,Voided Thrombosis Risk Factor Assmnt - Choose All That Apply Each Factor Represents 1 point: Age 41-60 years Thrombosis Risk Factor Assessment Total Risk Factor Score: 1 Thrombosis Risk Factor Assessment Level: Low Risk Assessment and Plan (1) Type 2 diabetes mellitus Current Visit: Yes Status: Acute Code(s): E11.9 - TYPE 2 DIABETES MELLITUS WITHOUT COMPLICATIONS SNOMED Code(s): 35404967 (2) Hypothyroid Current Visit: Yes Status: Acute Code(s): E03.9 - HYPOTHYROIDISM, UNSPECIF IED SNOMED Code(s): 29111957 (3) IBS (irritable bowel syndrome) Current Visit: Yes Status: Acute Code(s): K58.9 - IRRITABLE BOWEL SYNDROME WITHOUT DIARRHEA SNOMED Code(s): 93022148 (4) Abdominal pain Current Visit: Yes Status: Acute Code(s): R10.9 - UNSPECIFIED ABDOMINAL PAIN SNOMED Code(s): 95810810 (5) Colitis Current Visit: Yes Status: Acute Code(s): K52.9 - NONINFECTIVE GASTROENTERITIS AND COLITIS, UNSPECIFIED SNOMED Code(s): 56768647 Plan: 1. Abdominal pain secondary to R colitis. Will start IVF and zosyn. Clear liquid diet. Pain control. surgery consult 2. T2DM. Continue glipizide, accuchecks 3. Hypothyroidism. Cont synthroid
[2020-01-08] MEDS: SODIUM CHLORIDE 0.9% 1,000 ML IV SCH ×3 (03:25→12:23)
[2020-01-08] MEDS: PIPERACILLIN-TAZOBACTAM 3.375 GM in SODIUM CHLORIDE 0.9% 100 ML IVPB SCH ×3 (03:26→20:20)
[2020-01-08] MEDS: LEVOTHYROXINE 75 MCG TAB PO SCH (06:12)
[2020-01-08 06:16] LABS: Glucose,Whole Blood 104 mg/dL (75-99)
[2020-01-08 07:29] LABS: Basophils % (A) 0 %; Eosinophils # (A) 0.1 k/uL (0-0.7); Eosinophils % (A) 3 %; HCT 37.5 % (34.0-46.0); HGB 12.3 gm/dL (11.4-16.0); Lymphocytes # (A) 1.7 k/uL (1.0-4.8); Lymphocytes % (A) 34 %; MCH 29.1 pg (25.0-35.0); MCHC 32.9 g/dL (31.0-37.0); MCV 88.4 fL (80.0-100.0); Mean Platelet Volume 6.7; Monocytes # (A) 0.3 k/uL (0-1.0); Monocytes % (A) 6 %; Neutrophils # (A) 2.7 k/uL (1.3-7.7); Neutrophils % (A) 55 %; Platelet Count 136 k/uL (150-450); RBC 4.24 m/uL (3.80-5.40); RDW 12.7 % (11.5-15.5)
[2020-01-08 07:41] LABS: Albumin 3.7 g/dL (3.5-5.0); Calcium 9.4 mg/dL (8.4-10.2); Potassium 4.1 mmol/L (3.5-5.1); Total Bilirubin 0.7 mg/dL (0.2-1.3); Total Protein 6.5 g/dL (6.3-8.2)
[2020-01-08] MEDS: SERTRALINE 100 MG TAB PO SCH ×2 (08:11→21:19)
[2020-01-08] MEDS: HYDROmorphone 0.5 MG/0.5 ML SYRINGE IVP PRN ×3 (08:11→17:52)
[2020-01-08] MEDS: valACYclovir HCL 1,000 MG TABLET PO SCH ×2 (08:11→21:19)
[2020-01-08] MEDS: PANTOPRAZOLE 40 MG TABLET PO SCH (08:11)
[2020-01-08] MEDS: glipiZIDE 5 MG TAB PO SCH ×2 (08:11→21:19)
--- NOTE | 2020-01-08 09:58 | P.PN ---
Subjective Progress Note Date: 01/08/20 CHIEF COMPLAINT: Abdominal pain HISTORY OF PRESENT ILLNESS: Patient reports some improvement in abdominal pain. Patient's abdominal pain has come down from 03/05 to 09/03. She did have one episode of diarrhea yesterday. She is afebrile. WBC 5.0 PHYSICAL EXAM: VITAL SIGNS: Reviewed. GENERAL: Well-developed in no acute distress. HEENT: No sclera icterus. Extraocular movements grossly intact. Moist buccal mucosa. Head is atraumatic, normocephalic. ABDOMEN: Soft. Nondistended. Right-sided tenderness with palpation NEUROLOGIC: Alert and oriented. Cranial nerves II through XII grossly intact. ASSESSMENT: 1. Acute colitis 2. Abdominal pain 3. Nausea and vomiting PLAN: -Advance diet to full liquids -Continue IV antibiotics with Zosyn -Continue clear liquid diet -Recommend outpatient colonoscopy Physician Escort Service Attendant note has been reviewed by physician. Signing provider agrees with the documented findings, assessment, and plan of care. Objective - Vital Signs Vital signs: Vital Signs Temp 97.8 F 01/08/20 08:14 Pulse 69 01/08/20 08:14 Resp 14 01/08/20 08:14 BP 101/64 01/08/20 08:14 Pulse Ox 98 01/08/20 08:14 Intake & Output 01/07/20 01/08/20 01/08/20 18:59 06:59 18:59 Intake Total 700 Balance 700 Intake: Intake, IV Titration 500 Amount Piperacillin-Tazobactam 3 500 .375 gm In Sodium Chloride 0.9% 100 ml @ 25 mls/hr IVPB Q8H [facility] Rx#: [id number] Other 200 Other: Voiding Method Toilet Toilet Toilet # Voids 2 1 2 # Bowel Movements 1 1 - Labs CBC & Chem 7: 01/08/20 07:09 01/08/20 07:09 Labs: Abnormal Lab Results - Last 24 Hours (Table) 01/07/20 01/07/20 01/07/20 Range/Units 11:53 16:38 21:00 Plt Count (150-450) k/uL Glucose (74-99) mg/dL POC Glucose (mg/dL) 117 H 143 H 125 H (75-99) mg/dL AST (14-36) U/L ALT (4-34) U/L 01/08/20 01/08/20 01/08/20 Range/Units 06:12 07:09 07:09 Plt Count 136 L (150-450) k/uL Glucose 107 H (74-99) mg/dL POC Glucose (mg/dL) 104 H (75-99) mg/dL AST 56 H (14-36) U/L ALT 55 H (4-34) U/L Microbiology - Last 24 Hours (Table) 01/06/20 17:00 Urine Culture - Final Urine,Voided
[2020-01-08] MEDS: HYOSCYAMINE SULFATE 0.125 MG TAB PO PRN (11:16)
[2020-01-08 11:23] LABS: Glucose,Whole Blood 62 mg/dL (75-99)
[2020-01-08 11:37] LABS: Glucose,Whole Blood 80 mg/dL (75-99)
[2020-01-08 16:46] LABS: Glucose,Whole Blood 134 mg/dL (75-99)
[2020-01-08] MEDS: ONDANSETRON 4 MG/2 ML VIAL IVP PRN (17:49)
--- NOTE | 2020-01-08 20:42 | P.PN ---
Subjective Progress Note Date: 01/08/20 Her abdominal pain is improved but still present. She is tolerating clear liquid diet without nausea or vomiting. Still painful to ambulate Objective - Vital Signs Vital signs: Vital Signs Temp 98.3 F 01/08/20 19:25 Pulse 69 01/08/20 19:26 Resp 16 01/08/20 19:26 BP 122/63 01/08/20 19:25 Pulse Ox 95 01/08/20 19:25 Intake & Output 01/08/20 01/08/20 01/09/20 06:59 18:59 06:59 Intake Total 200 Balance 200 Intake: Other 200 Other: Voiding Method Toilet Toilet Toilet # Voids 1 2 # Bowel Movements 1 1 - Exam Gen: well developed, well nourished female in NAD CV: RRR, no murmur Lungs: normal effort, clear throughout Abd: soft, generalized tenderness worst RLQ Skin: warm and dry - Labs CBC & Chem 7: 01/08/20 07:09 01/08/20 07:09 Labs: Abnormal Lab Results - Last 24 Hours (Table) 01/07/20 01/08/20 01/08/20 Range/Units 21:00 06:12 07:09 Plt Count 136 L (150-450) k/uL Glucose (74-99) mg/dL POC Glucose (mg/dL) 125 H 104 H (75-99) mg/dL AST (14-36) U/L ALT (4-34) U/L 01/08/20 01/08/20 01/08/20 Range/Units 07:09 11:21 16:44 Plt Count (150-450) k/uL Glucose 107 H (74-99) mg/dL POC Glucose (mg/dL) 62 L 134 H (75-99) mg/dL AST 56 H (14-36) U/L ALT 55 H (4-34) U/L Microbiology - Last 24 Hours (Table) 01/06/20 17:00 Urine Culture - Final Urine,Voided Assessment and Plan (1) Type 2 diabetes mellitus Current Visit: Yes Status: Acute Code(s): E11.9 - TYPE 2 DIABETES MELLITUS WITHOUT COMPLICATIONS SNOMED Code(s): 94849142 (2) Hypothyroid Current Visit: Yes Status: Acute Code(s): E03.9 - HYPOTHYROIDISM, UNS PECIFIED SNOMED Code(s): 78217962 (3) IBS (irritable bowel syndrome) Current Visit: Yes Status: Acute Code(s): K58.9 - IRRITABLE BOWEL SYNDROME WITHOUT DIARRHEA SNOMED Code(s): 89754625 (4) Abdominal pain Current Visit: Yes Status: Acute Code(s): R10.9 - UNSPECIFIED ABDOMINAL PAIN SNOMED Code(s): 95153595 (5) Colitis Current Visit: Yes Status: Acute Code(s): K52.9 - NONINFECTIVE GASTROENTERITIS AND COLITIS, UNSPECIFIED SNOMED Code(s): 47930830 Plan: Continue zosyn, advance her diet today. Will start levsin for her IBS. Continue protonix
[2020-01-08 21:17] LABS: Glucose,Whole Blood 192 mg/dL (75-99)
[2020-01-08] MEDS: ZOLPIDEM 5 MG TAB PO SCH (21:17)
[2020-01-09] MEDS: SODIUM CHLORIDE 0.9% 1,000 ML IV SCH ×3 (03:46→16:03)
[2020-01-09] MEDS: PIPERACILLIN-TAZOBACTAM 3.375 GM in SODIUM CHLORIDE 0.9% 100 ML IVPB SCH ×3 (03:46→21:20)
[2020-01-09] MEDS: LEVOTHYROXINE 75 MCG TAB PO SCH (06:29)
[2020-01-09 06:30] LABS: Glucose,Whole Blood 111 mg/dL (75-99)
[2020-01-09] MEDS: HYDROmorphone 0.5 MG/0.5 ML SYRINGE IVP PRN ×2 (08:12→19:16)
[2020-01-09] MEDS: PANTOPRAZOLE 40 MG TABLET PO SCH (08:13)
[2020-01-09] MEDS: glipiZIDE 5 MG TAB PO SCH ×2 (08:13→21:21)
[2020-01-09] MEDS: SERTRALINE 100 MG TAB PO SCH ×2 (08:13→21:21)
[2020-01-09] MEDS: valACYclovir HCL 1,000 MG TABLET PO SCH ×2 (08:13→20:18)
--- NOTE | 2020-01-09 10:45 | P.PN ---
Progress Note - Text Progress Note Date: 01/09/20 Patient has complaints of increased quadrant pain. She's also had increased diarrhea. On exam vital signs are stable. Abdomen is soft. There is tenderness right lower quadrant. Right-sided colitis. Patient received IV fluids and antibiotics. She'll continue to be observed. She'll remain on her full liquid diet.
[2020-01-09 11:37] LABS: Glucose,Whole Blood 97 mg/dL (75-99)
--- NOTE | 2020-01-09 13:30 | P.PN ---
Subjective covering for Dr. duval on 01/08-01/09. Dr. Duval will resume the care of the patient on 01/10 This is a pleasant 59 years old female with multiple medical problems including asthma, diabetes mellitus, GERD, hypothyroidism. Presents with signs symptoms of right-sided colitis patient is still complaining of from right lower quadrant abdominal pain which looks like it's, patient coming and going, increased with movement. No nausea vomiting and she is tolerating a clear liquid diet. She had any bowel movement yesterday and today is a little bit harder patient is afebrile and CBC and BMP is unremarkable. Liver enzymes slightly elevated with AST is [address] of the abdomen and pelvis: Acute colitis in the right lower quadrant of the ascending colon urine culture showing skin and genital juan miguel she is currently on Zosyn and normal/at 1 30 mL/h Objective - Vital Signs Vital signs: Vital Signs Temp 98.1 F 01/09/20 08:13 Pulse 69 01/09/20 08:18 Resp 16 01/09/20 08:18 BP 125/69 01/09/20 08:13 Pulse Ox 98 01/09/20 08:13 Intake & Output 01/08/20 01/09/20 01/09/20 18:59 06:59 18:59 Intake Total 200 Balance 200 Intake: Other 200 Other: Voiding Method Toilet Toilet Toilet # Voids 2 2 1 # Bowel Movements 1 - Labs CBC & Chem 7: 01/08/20 07:09 01/08/20 07:09 Labs: Abnormal Lab Results - Last 24 Hours (Table) 01/08/20 01/08/20 01/09/20 Range/Units 16:44 21:16 06:29 POC Glucose (mg/dL) 134 H 192 H 111 H (75-99) mg/dL Assessment and Plan Assessment: acute Right ascending colitis diabetes mellitus Hypothyroidism History of GERD Chronic asthma, not in activation Plan: This is a pleasant 59 years old female who presents with right-sided colitis. Continue with IV fluids and antibiotics with Zosyn.surgery team on the case. Labs and medication were reviewed.. Continue same treatment. Continue with symptomatic treatment. Resume home medication. Monitor lytes and vitals. DVT and GI prophylaxis. Further recommendations of the clinical course of the patient DVT prophylaxis: Subcutaneous heparin GI Prophylaxis: Ppi
[2020-01-09] MEDS: HYOSCYAMINE SULFATE 0.125 MG TAB PO PRN (16:02)
[2020-01-09 17:00] LABS: Glucose,Whole Blood 125 mg/dL (75-99)
[2020-01-09] MEDS: HEPARIN SODIUM,PORCINE 5,000 UNIT/ML 1 ML VIAL SQ SCH (20:17)
[2020-01-09 20:42] LABS: Glucose,Whole Blood 122 mg/dL (75-99)
[2020-01-09] MEDS: ZOLPIDEM 5 MG TAB PO SCH (21:22)
[2020-01-10] MEDS: PIPERACILLIN-TAZOBACTAM 3.375 GM in SODIUM CHLORIDE 0.9% 100 ML IVPB SCH ×3 (04:36→19:49)
[2020-01-10] MEDS: SODIUM CHLORIDE 0.9% 1,000 ML IV SCH ×4 (04:36→21:42)
[2020-01-10] MEDS: LEVOTHYROXINE 75 MCG TAB PO SCH (06:37)
[2020-01-10 06:40] LABS: Glucose,Whole Blood 106 mg/dL (75-99)
[2020-01-10 08:09] LABS: Basophils % (A) 1 %; Eosinophils # (A) 0.2 k/uL (0-0.7); Eosinophils % (A) 3 %; HCT 38.9 % (34.0-46.0); HGB 12.9 gm/dL (11.4-16.0); Lymphocytes # (A) 2.1 k/uL (1.0-4.8); Lymphocytes % (A) 35 %; MCH 29.2 pg (25.0-35.0); MCHC 33.1 g/dL (31.0-37.0); MCV 88.1 fL (80.0-100.0); Mean Platelet Volume 6.9; Monocytes # (A) 0.3 k/uL (0-1.0); Monocytes % (A) 6 %; Neutrophils # (A) 3.2 k/uL (1.3-7.7); Neutrophils % (A) 54 %; Platelet Count 156 k/uL (150-450); RBC 4.41 m/uL (3.80-5.40); RDW 12.7 % (11.5-15.5); WBC 5.9 k/uL (3.8-10.6)
[2020-01-10 08:21] LABS: African American GFR (CKD) >90 (>60 ml/min/1.73 sqM); Anion Gap 8 mmol/L; Blood Urea Nitrogen 8 mg/dL (7-17); Calcium 9.7 mg/dL (8.4-10.2); Carbon Dioxide 25 mmol/L (22-30); Chloride 108 mmol/L (98-107); Glucose 105 mg/dL (74-99); Non-African American GFR(CKD) 89 (>60 ml/min/1.73 sqM); Potassium 4.3 mmol/L (3.5-5.1); Sodium 141 mmol/L (137-145)
[2020-01-10] MEDS: valACYclovir HCL 1,000 MG TABLET PO SCH ×2 (08:29→21:41)
[2020-01-10] MEDS: PANTOPRAZOLE 40 MG TABLET PO SCH (08:30)
[2020-01-10] MEDS: HYDROmorphone 0.5 MG/0.5 ML SYRINGE IVP PRN (08:30)
[2020-01-10] MEDS: glipiZIDE 5 MG TAB PO SCH ×2 (08:30→21:41)
[2020-01-10] MEDS: HEPARIN SODIUM,PORCINE 5,000 UNIT/ML 1 ML VIAL SQ SCH ×2 (08:30→21:39)
[2020-01-10] MEDS: SERTRALINE 100 MG TAB PO SCH ×2 (08:30→21:42)
--- NOTE | 2020-01-10 11:09 | P.PN ---
Progress Note - Text Progress Note Date: 01/10/20 The patient has complaints of increased right lower quadrant pain. On exam vital signs are stable. Abdomen soft. There is marked tenderness right lower quadrant. Patient will be reimaged today. We will check her CAT scan to look for increase colitis left lower quadrant. She'll remain on clear liquids.
[2020-01-10 11:12] LABS: Glucose,Whole Blood 122 mg/dL (75-99)
[2020-01-10] MEDS: IOPAMIDOL CONTRAST (ORAL USE) VIAL PO PRN ×2 (11:29→12:35)
--- NOTE | 2020-01-10 12:13 | P.PN ---
Subjective covering for Dr. duval on 01/08-01/09. Dr. Duval will resume the care of the patient on 01/10 This is a pleasant 59 years old female with multiple medical problems including asthma, diabetes mellitus, GERD, hypothyroidism. Presents with signs symptoms of right-sided colitis patient is still complaining of from right lower quadrant abdominal pain which looks like it's, patient coming and going, increased with movement. No nausea vomiting and she is tolerating a clear liquid diet. She had any bowel movement yesterday and today is a little bit harder patient is afebrile and CBC and BMP is unremarkable. Liver enzymes slightly elevated with AST is [address] of the abdomen and pelvis: Acute colitis in the right lower quadrant of the ascending colon urine culture showing skin and genital juan miguel she is currently on Zosyn and normal/at 1 30 mL/h 01/10/2020 Patient is awake and alert and with no nausea vomiting However her abdominal pain on the right lower quadrant is worse compared to yesterday. She has the distal bowel movement Vitals and labs are reviewed and they looks stable. Sugar is controlled Surgery team already evaluated the patient and they ordered a CAT scan of the abdomen and pelvis which is pending Objective - Vital Signs Vital signs: Vital Signs Temp 98.3 F 01/10/20 08:27 Pulse 85 01/10/20 09:00 Resp 16 01/10/20 09:00 BP 118/74 01/10/20 08:27 Pulse Ox 98 01/10/20 08:27 Intake & Output 01/09/20 01/10/20 01/10/20 18:59 06:59 18:59 Intake Total 1100 Output Total 2 Balance 1100 -2 Intake: Intake, IV Titration 1100 Amount Piperacillin-Tazobactam 3 100 .375 gm In Sodium Chloride 0.9% 100 ml @ 25 mls/hr IVPB Q8H [facility] Rx#: [id number] Sodium Chloride 0.9% 1, 1000 000 ml @ 130 mls/hr IV . Q7H42M [facility] Rx#:[id number] Output: Stool 2 Other: Voiding Method Toilet Toilet # Voids 1 1 1 - Exam GENERAL: The patient is alert and oriented x3, not in any acute distress. Well developed, well nourished. HEENT: Pupils are round and equally reacting to light. EOMI. No scleral icterus. No conjunctival pallor. Normocephalic, atraumatic. No pharyngeal erythema. No thyromegaly. CARDIOVASCULAR: S1 and S2 present. No murmurs, rubs, or gallops. PULMONARY: Chest is clear to auscultation, no wheezing or crackles. -ABDOMEN: Soft, right lower quadrant tenderness, nondistended, normoactive bowel sounds. No palpable organomegaly. MUSCULOSKELETAL: No joint swelling or deformity. EXTREMITIES: No cyanosis, clubbing, or pedal edema. NEUROLOGICAL: Gross neurological examination did not reveal any focal deficits. SKIN: No rashes. no petechiae. - Labs CBC & Chem 7: 01/10/20 07:40 01/10/20 07:40 Labs: Abnormal Lab Results - Last 24 Hours (Table) 01/09/20 01/09/20 01/10/20 Range/Units 16:49 20:40 06:39 Chloride (98-107) mmol/L Glucose (74-99) mg/dL POC Glucose (mg/dL) 125 H 122 H 106 H (75-99) mg/dL 01/10/20 01/10/20 Range/Units 07:40 11:05 Chloride 108 H (98-107) mmol/L Glucose 105 H (74-99) mg/dL POC Glucose (mg/dL) 122 H (75-99) mg/dL Assessment and Plan Assessment: acute Right ascending colitis diabetes mellitus Hypothyroidism History of GERD Chronic asthma, not in activation Plan: This is a pleasant 59 years old female who presents with right-sided colitis. Continue with IV fluids and antibiotics with Zosyn.surgery team on the case And the recommend in CAT scan of the abdomen and pelvis which is pending Labs and medication were reviewed.. Continue same treatment. Continue with symptomatic treatment. Resume home medication. Monitor lytes and vitals. DVT and GI prophylaxis. Further recommendations of the clinical course of the patient DVT prophylaxis: Subcutaneous heparin GI Prophylaxis: Ppi
--- NOTE | 2020-01-10 13:57 | CT ---
EXAMINATION TYPE: CT abdomen pelvis w con DATE OF EXAM: 01/10/2020 COMPARISON: 01/06/2020 HISTORY: 59-year-old female right side abdominal pain TECHNIQUE: Contiguous axial scanning of the abdomen and pelvis following administration of 100 ml Iso nawaf 300 IV contrast. Delayed images through the kidneys and coronal/sagittal reconstructions perform ed. CT DLP: 982.5 mGycm Automated exposure control for dose reduction was used. FINDINGS: Heart normal size without pericardial effusion. Prominent dependent atelectasis. No pleural effusion. Small hiatal hernia. 6.5 cm cyst of the right hepatic dome. Portal venous system is patent. No biliary ductal dilatation. Gallbladder suspected surgically absent. Adrenal glands, kidneys, and pancreas appear within normal limits. Splenomegaly of 15.9 cm. Normal appendix. Oral contrast progressed to the hepatic flexure. There is scattered mild stool. No p ericolonic inflammatory change. No dilated small bowel, free fluid, or free air. Foci of air within the subcutaneous adipose of the right lower quadrant likely relating to subcutaneo us injection. Mild circumferential bladder wall thickening. Uterus surgically absent. Suspect visualization of the right ovary on axial image 65. Left ovary not clearly seen. Multiple pelvic phlebolith. No abnormal fluid collection in the pelvis or pelvic lymphadenopathy. Bones: Degenerative disc disease throughout the mid and lower lumbar spine. Facet arthropathy with gr everardo 1 retrolisthesis at L3-L4. IMPRESSION: 1. MILD CIRCUMFERENTIAL BLADDER WALL THICKENING. CORRELATE TO EXCLUDE CYSTITIS. 2. SPLENOMEGALY AT 15.9 CM. 3. NORMAL APPENDIX. MODERATE STOOL BURDEN. OTHERWISE, NO ACUTE INFLAMMATORY PROCESS IDENTIFIED TO EXP KERRY THE PATIENT'S SYMPTOMS.
[2020-01-10] MEDS: ONDANSETRON 4 MG/2 ML VIAL IVP PRN (13:59)
[2020-01-10 16:46] LABS: Glucose,Whole Blood 223 mg/dL (75-99)
[2020-01-10 19:49] LABS: Glucose,Whole Blood 127 mg/dL (75-99)
[2020-01-10] MEDS ORDERED: ZOLPIDEM 5 MG TAB PO SCH (21:00)
[2020-01-10] MEDS: HYOSCYAMINE SULFATE 0.125 MG TAB PO PRN (21:40)
[2020-01-10] MEDS: ZOLPIDEM 5 MG TAB PO SCH (21:41)
[2020-01-11 00:07] VITALS: RESP 18
[2020-01-11] MEDS: SODIUM CHLORIDE 0.9% 1,000 ML IV SCH (03:07)
[2020-01-11] MEDS: PIPERACILLIN-TAZOBACTAM 3.375 GM in SODIUM CHLORIDE 0.9% 100 ML IVPB SCH (03:07)
[2020-01-11] MEDS: LEVOTHYROXINE 75 MCG TAB PO SCH (06:03)
[2020-01-11 06:09] LABS: Glucose,Whole Blood 173 mg/dL (75-99)
[2020-01-11 06:34] VITALS: PULSE 77
[2020-01-11] MEDS: glipiZIDE 5 MG TAB PO SCH (09:19)
[2020-01-11] MEDS: PANTOPRAZOLE 40 MG TABLET PO SCH (09:19)
[2020-01-11] MEDS: valACYclovir HCL 1,000 MG TABLET PO SCH (09:19)
[2020-01-11] MEDS: SERTRALINE 100 MG TAB PO SCH (09:19)
[2020-01-11] MEDS: HEPARIN SODIUM,PORCINE 5,000 UNIT/ML 1 ML VIAL SQ SCH (09:21)
[2020-01-11 10:21] VITALS: BP 117/65; TEMP 97.8
--- NOTE | 2020-01-11 13:38 | P.PN ---
Subjective Progress Note Date: 01/11/20 CHIEF COMPLAINT: Abdominal pain HISTORY OF PRESENT ILLNESS: Patient will be discharged today. Abdominal pain is improving. She is tolerating clear liquid diet. Computed tomography scan of the abdomen had shown improvement colitis. There is evidence of bladder wall thickening and likely 15.9 cm. As well as moderate stool burden. Patient does report regular bowel. She is afebrile. PHYSICAL EXAM: VITAL SIGNS: Reviewed. GENERAL: Well-developed in no acute distress. HEENT: No sclera icterus. Extraocular movements grossly intact. Moist buccal mucosa. Head is atraumatic, normocephalic. ABDOMEN: Soft. Nondistended. Right-sided tenderness with palpation NEUROLOGIC: Alert and oriented. Cranial nerves II through XII grossly intact. ASSESSMENT: 1. Acute colitis 2. Abdominal pain 3. Nausea and vomiting PLAN: -agree with antibiotics at discharge -Follow up with Dr. Mohr in 1 week -Recommend outpatient colonoscopy Physician Pearl Digger note has been reviewed by physician. Signing provider agrees with the documented findings, assessment, and plan of care. Objective - Vital Signs Vital signs: Vital Signs Temp 97.8 F 01/11/20 09:00 Pulse 77 01/11/20 09:00 Resp 18 01/11/20 09:00 BP 117/65 01/11/20 09:00 Pulse Ox 97 01/11/20 09:00 Intake & Output 01/10/20 01/11/20 01/11/20 18:59 06:59 18:59 Intake Total 1710 910 Output Total 4 1 2 Balance -4 1709 908 Intake: Intake, IV Titration 1040 Amount Sodium Chloride 0.9% 1, 1040 000 ml @ 130 mls/hr IV . Q7H42M [facility] Rx#:[id number] Oral 670 910 Output: Stool 4 1 2 Other: Voiding Method Toilet Toilet Toilet # Voids 1 2 1 - Labs CBC & Chem 7: 01/10/20 07:40 01/10/20 07:40 Labs: Abnormal Lab Results - Last 24 Hours (Table) 01/10/20 01/10/20 01/11/20 Range/Units 16:41 19:47 06:08 POC Glucose (mg/dL) 223 H 127 H 173 H (75-99) mg/dL
--- NOTE | 2020-01-11 15:29 | P.DS ---
Providers Date of admission: 01/09/20 08:13 Expected date of discharge: 01/11/20 Attending physician: Chris Duval MD Consults: 01/06/20 19:54 Consult Physician Urgent Consulting Provider: Patrick Mohr Consult Reason/Comments: Colitis Do you want consulting provider notified?: Yes Primary care physician: Chris Duval MD Hospital Course: Final Diagnoses: Acute right ascending colitis Splenomegaly, 15.9 cm 6.5 cm right hepatic dome cyst Diabetes mellitus Gastroesophageal reflux disease Hypothyroidism Chronic asthma, stable Hospital course: This a 59-year-old female admitted with abdominal pain, CT reported acute right lower quadrant ascending colon colitis.Maintained on IV antibiotics of Zosyn. CT repeated. Evaluated by surgery, recommending outpatient colonoscopy. Afebrile, significant clinical improvement. Cleared by surgery for discharge. Patient being discharged home in a stable condition with her prognosis on oral Augmentin 3 more days. The impression and plan of care has been dictated as directed. : I performed a history and examination of this patient, discussed the same with the dictator. I agree with the dictator's note ,documented as a scribe. Any additional findings or plans will be noted. Patient Condition at Discharge: Stable Plan - Discharge Summary New Discharge Prescriptions: New Amoxic-Pot Clav 875-125Mg [Augmentin 875-125] 1 tab PO Q12HR 3 Days #6 tab Hyoscyamine Sulfate [Levsin] 0.125 mg PO Q4H PRN #18 tab PRN Reason: Bloating Ondansetron HCl [Zofran] 4 mg PO Q8H PRN #9 tab PRN Reason: Nausea And Vomiting No Action Sertraline [Zoloft] 100 mg PO BID Raloxifene [Evista] 60 mg PO DAILY Dulaglutide [Trulicity] 1.5 mg SQ SM[facility] traMADol HCL [Ultram] 50 mg PO TID Zolpidem Tartrate [Ambien] 10 mg PO HS Azelastine HCl 1 - 2 spray EA NOSTRIL BID PRN PRN Reason: Allergy Symptoms Fluticasone Nasal [place] [Flonase Nasal [place]] 2 spr EA NOSTRIL DAILY PRN PRN Reason: Allergy Symptoms Esomeprazole Magnesium [NexIUM 24Hr] 20 mg PO BID valACYclovir HCL [Valtrex] 1,000 mg PO BID Ergocalciferol [Vitamin D2] 50,000 unit PO MO glipiZIDE XL [Glucotrol Xl] 5 mg PO BID Levothyroxine Sodium [Synthroid] 150 mcg PO DAILY guaiFENesin [Mucinex] 600 mg PO HS Discharge Medication List Dulaglutide [Trulicity] 1.5 mg SQ SMITH 07/23/17 [History] Raloxifene [Evista] 60 mg PO DAILY 07/23/17 [History] Sertraline [Zoloft] 100 mg PO BID 07/23/17 [History] Zolpidem Tartrate [Ambien] 10 mg PO HS 01/10/18 [History] traMADol HCL [Ultram] 50 mg PO TID 01/10/18 [History] Azelastine HCl 1 - 2 spray EA NOSTRIL BID PRN 01/06/20 [History] Ergocalciferol [Vitamin D2] 50,000 unit PO MO 01/06/20 [History] Esomeprazole Magnesium [NexIUM 24Hr] 20 mg PO BID 01/06/20 [History] Fluticasone Nasal [place] [Flonase Nasal [place]] 2 spr EA NOSTRIL DAILY PRN 01/06/20 [History] Levothyroxine Sodium [Synthroid] 150 mcg PO DAILY 01/06/20 [History] glipiZIDE XL [Glucotrol Xl] 5 mg PO BID 01/06/20 [History] guaiFENesin [Mucinex] 600 mg PO HS 01/06/20 [History] valACYclovir HCL [Valtrex] 1,000 mg PO BID 01/06/20 [History] Amoxic-Pot Clav 875-125Mg [Augmentin 875-125] 1 tab PO Q12HR 3 Days #6 tab 01/11/20 [Rx] Hyoscyamine Sulfate [Levsin] 0.125 mg PO Q4H PRN #18 tab 01/11/20 [Rx] Ondansetron HCl [Zofran] 4 mg PO Q8H PRN #9 tab 01/11/20 [Rx] Follow up Appointment(s)/Referral(s): Chris Duval MD [Primary Care Provider] - 3 Days Patrick Mohr MD [STAFF PHYSICIAN] - 1 Week Ambulatory/Diagnostic Orders: Complete Blood Count w/diff [LAB.AMB] Time Frame: 3 Days, Location: None Selected Patient Instructions/Handouts: Ulcerative Colitis (GEN) Discharge Disposition: HOME SELF-CARE
== END 2020-01-11 12:41 | disposition home or self-care (01) | DRG 392 ==
LOC: EC 15:20 → 1SOBS 17:34 → OBSVTOIN 01-09 08:13
PROVIDERS: ADMIT Family Medicine; ATTEND Family Medicine
DX: K52.9 Noninfective gastroenteritis and colitis, unspecified (principal); K21.9 Gastro-esophageal reflux disease without esophagitis; J45.909 Unspecified asthma, uncomplicated; G89.4 Chronic pain syndrome; E11.9 Type 2 diabetes mellitus without complications; F41.9 Anxiety disorder, unspecified; K76.89 Other specified diseases of liver; R16.1 Splenomegaly, not elsewhere classified; F32.9 Major depressive disorder, single episode, unspecified; K58.0 Irritable bowel syndrome with diarrhea; E03.9 Hypothyroidism, unspecified; R00.0 Tachycardia, unspecified; I10 Essential (primary) hypertension; Z90.710 Acquired absence of both cervix and uterus; Z79.890 Hormone replacement therapy; Z79.899 Other long term (current) drug therapy; Z79.84 Long term (current) use of oral hypoglycemic drugs; Z88.8 Allergy status to other drugs, medicaments and biological substances; Z88.6 Allergy status to analgesic agent; Z98.890 Other specified postprocedural states; Z80.8 Family history of malignant neoplasm of other organs or systems; Z80.49 Family history of malignant neoplasm of other genital organs; Z90.49 Acquired absence of other specified parts of digestive tract
CPT/HCPCS: 36415; 74177; 80048; 80053; 81001; 82150; 83605; 83690; 83735; 85025; 86140; 87086; 96361; 96374; 96375; 99285

== ENCOUNTER 2020-03-10 06:18 | Day surgery (SDC) | payer BC, MEDICARE ==
[2020-03-09 12:38] VITALS: BMI 23.9
[~2020-03-10 06:18] MED LIST changes: -DEXAMETHASONE SOD PHOSPHATE 10 MG/ML 1 ML VIAL IV ONE; -HEPARIN SODIUM,PORCINE 5,000 UNIT/ML 1 ML VIAL SQ ONE; -LIDOCAINE 1% 20 ML VIAL (10MG/ML) FOR IV START INTRADERMA PRN; -MIDAZOLAM 2 MG/2 ML VIAL IV PRN; -ONDANSETRON 4 MG/2 ML VIAL IVP ONE; -SCOPOLAMINE 1.5MG/72HR PATCH TRANSDERM ONE; -ceFAZolin IN SWFI 2 GM/20 ML SYRINGE IVP ONE
[2020-03-10] MEDS ORDERED: LACTATED RINGERS 1,000 ML IV ONE (06:50)
[2020-03-10 07:00] LABS: Glucose,Whole Blood 165 mg/dL (75-99)
[2020-03-10] MEDS ORDERED: LIDOCAINE 1% (10MG/ML) FOR IV START INTRADERMA ONE (07:01)
[2020-03-10 07:07] VITALS: TEMP 97.9
[2020-03-10] MEDS ORDERED: PROPOFOL 10 MG/ML 20 ML VIAL IV ONE (07:40)
--- NOTE | 2020-03-10 07:44 | P.GSHP ---
History of Present Illness H&P Date: 03/10/20 Chief Complaint: Colitis This a 5-year-old female presents today for colonoscopy. Patient issues with frequent bowel movements and abdominal pain. She is being evaluated for colitis. Past Medical History Past Medical History: Asthma, Diabetes Mellitus, GERD/Reflux, Thyroid Disorder Additional Past Medical History / Comment(s): CHRONIC PAIN SYNDROME (NO RX AT THIS TIME) ,CHRONIC BACK, SACRUM & CERVICAL PAIN. History of Any Multi-Drug Resistant Organisms: None Reported Past Surgical History: Cholecystectomy, Hysterectomy Additional Past Surgical History / Comment(s): LAPAROSCOPIC SURERY X3 , 4 NERVE BLOCKS FOR CHRONIC PAIN SYNDROME. Past Anesthesia/Blood Transfusion Reactions: No Reported Reaction, Motion Sickness Additional Past Anesthesia/Blood Transfusion Reaction / Comment(s): HX OF BLOOD TRANSFUSION (1983- NO REACTION) Smoking Status: Never smoker - Past Family History Mother Family Medical History: Cancer Additional Family Medical History / Comment(s): UTERINE CANCER Father Family Medical History: Cancer Additional Family Medical History / Comment(s): MESOTHELIOMA Brother(s) Family Medical History: Cancer Additional Family Medical History / Comment(s): MELANOMA Son(s) Family Medical History: Cancer Additional Family Medical History / Comment(s): MELANOMA Medications and Allergies Home Medications Medication Instructions Recorded Confirmed Type Dulaglutide [Trulicity] 1.5 mg SQ SMITH 07/23/17 03/09/20 History Raloxifene [Evista] 60 mg PO DAILY 07/23/17 03/09/20 History Sertraline [Zoloft] 100 mg PO BID 07/23/17 03/09/20 History Zolpidem Tartrate [Ambien] 10 mg PO HS 01/10/18 03/09/20 History traMADol HCL [Ultram] 50 mg PO TID 01/10/18 03/09/20 History Azelastine HCl 1 - 2 spray EA NOSTRIL BID PRN 01/06/20 03/09/20 History Ergocalciferol [Vitamin D2] 50,000 unit PO MO 01/06/20 03/09/20 History Esomeprazole Magnesium [NexIUM 20 mg PO BID 01/06/20 03/09/20 History 24Hr] Fluticasone Nasal [place] [Flonase 2 spr EA NOSTRIL DAILY PRN 01/06/20 03/09/20 History Nasal [place]] Levothyroxine Sodium [Synthroid] 150 mcg PO DAILY 01/06/20 03/09/20 History glipiZIDE XL [Glucotrol Xl] 5 mg PO BID 01/06/20 03/09/20 History guaiFENesin [Mucinex] 600 mg PO HS 01/06/20 03/09/20 History valACYclovir HCL [Valtrex] 1,000 mg PO BID PRN 01/06/20 03/09/20 History Hyoscyamine Sulfate [Levsin] 0.125 mg PO Q4H PRN #18 tab 01/11/20 03/09/20 Rx Umeclidinium Brm/Vilanterol Tr 1 puff INHALATION DAILY PRN 02/10/20 03/09/20 History [Anoro Ellipta 62.5-25 Mcg INH] Allergies Allergy/AdvReac Type Severity Reaction Status Date / Time atorvastatin [From Lipitor] Allergy Unknown Rash/Hives Verified 03/09/20 12:35 metronidazole [From Flagyl] Allergy Anaphylaxis Verified 03/09/20 12:35 naproxen [From Aleve] Allergy Swelling Verified 03/09/20 12:35 metformin AdvReac Nausea & Verified 03/09/20 12:35 Vomiting Surgical - Exam Vital Signs Temp Pulse Resp BP Pulse Ox 97.9 F 72 18 119/72 97 03/10/20 06:49 03/10/20 06:49 03/10/20 06:49 03/10/20 06:49 03/10/20 06:49 - General well developed, well nourished - Eyes PERRL - ENT normal pinna - Neck no masses - Respiratory normal expansion - Cardiovascular Rhythm: regular - Abdomen Abdomen: soft, non tender Results - Labs Abnormal Lab Results - Last 24 Hours (Table) 03/10/20 Range/Units 06:58 POC Glucose (mg/dL) 165 H (75-99) mg/dL Assessment and Plan Assessment: Dull pain, change in bowel habits, colitis. We'll perform colonoscopy
--- NOTE | 2020-03-10 07:59 | P.OP ---
Date of Procedure: 03/10/20 Preoperative Diagnosis: Colitis Postoperative Diagnosis: Diverticulosis Rectal biopsy pending Procedure(s) Performed: Colonoscopy Anesthesia: MAC Surgeon: Patrick Mohr Pathology: other (Rectum) Condition: stable Disposition: PACU Description of Procedure: The patient's placed on the endoscopy table in the lateral position. She received IV sedation. Digital rectal exam is performed which revealed no abnormalities. The flexible colonoscope was then placed patient anus passed throughout the entire colon. The ileocecal valve sutures. Cecum, ascending and transverse colon appeared normal. In the descending; was mild diverticular changes. Scope was brought back the rectum and this appeared normal to the patient's symptoms colitis a random biopsies performed. Scope was withdrawn for patient.
[2020-03-10 08:01] VITALS: RESP 16
[2020-03-10 08:26] VITALS: BP 113/72; PULSE 72
== END 2020-03-10 08:53 | disposition home or self-care (01) ==
LOC: ORWHC2ENDO 06:18
PROVIDERS: ATTEND Surgery
DX: K57.30 Diverticulosis of large intestine without perforation or abscess without bleeding (principal); J45.909 Unspecified asthma, uncomplicated; K21.9 Gastro-esophageal reflux disease without esophagitis; E07.9 Disorder of thyroid, unspecified; G89.4 Chronic pain syndrome; E11.9 Type 2 diabetes mellitus without complications; Z79.84 Long term (current) use of oral hypoglycemic drugs; Z79.899 Other long term (current) drug therapy; Z79.890 Hormone replacement therapy; Z88.1 Allergy status to other antibiotic agents; Z90.710 Acquired absence of both cervix and uterus; Z88.8 Allergy status to other drugs, medicaments and biological substances; Z90.49 Acquired absence of other specified parts of digestive tract; Z88.6 Allergy status to analgesic agent; Z80.49 Family history of malignant neoplasm of other genital organs; Z80.8 Family history of malignant neoplasm of other organs or systems; Z79.891 Long term (current) use of opiate analgesic
CPT/HCPCS: 88305; 45380; J2704

== ENCOUNTER → 2021-09-05 | Outpatient (CLI) | payer BC ==
--- NOTE | 2021-09-06 08:13 | MR ---
EXAMINATION TYPE: MR lumbar spine wo con DATE OF EXAM: 09/05/2021 COMPARISON: Lumbar spine x-ray August 14, 2021. CT abdomen and pelvis January 10, 2020 HISTORY: Lumbar spine pain TECHNIQUE: Multiplanar, multisequence imaging of the lumbar spine is performed without IV contrast. FINDINGS: Persistent dextroconvex scoliosis centered at L3-L4 level. Sagittal images of the lumbar sp ine show vertebral body heights to remain satisfactory. Alignment remains stable and straightened. Sl ight grade 1 retrolisthesis L1 on L2, L2 on L3, L3 on L4, and L5 on S1 is present. Multilevel disc de siccation with moderate to advanced multilevel disc space narrowing greatest at L2-L3 and L4-L5 level s. There is moderate multilevel anterior spurring. There is heterogeneous Modic type II endplate mullen ges L2-L3 and L4-L5 levels along with Modic type I endplate changes at L3-L4 level. The conus medull magui is normal in position and signal ending at mid L1 level. Axial images at T12-L1 level show tiny central disc protrusion minimally effaces the anterior thecal sac. Axial images at L1-L2 level show mild/moderate broad-based disc bulge effacing anterior thecal sac wi th right greatest right paracentral component. Patent bilateral neural foramina. Axial images at L2-L3 level show [id number] broad disc bulge mildly effacing the anterior theca l sac with mild facet arthropathy bilaterally. Patent bilateral neural foramina. Axial images at L3-L4 levels show mild/moderate broad-based disc bulge along with mild/moderate facet arthropathy and ligamentum flavum hypertrophy effacing the anterior thecal sac. There is mild-to-mod erate left-sided anterior inferior neural foraminal narrowing. Right-sided neural foramen is patent. Axial images at L4-L5 level show moderate facet arthropathy and ligamentum flavum hypertrophy and pos terolateral thecal sac. Mild broad disc bulge minimally effaces the anterior thecal sac. There is mil d to moderate bilateral neural foraminal narrowing noted. Axial images at L5-S1 level mild facet arthropathy bilaterally. There is mild/moderate bilateral neur al foraminal narrowing. Spinal canal is preserved. Paraspinal muscle bulk is maintained. IMPRESSION: Multilevel spondylolisthesis and degenerative changes in the lumbar spine as detailed abo ve.
== END | disposition home or self-care (01) ==
LOC: RADMRIMAIN 09:09
PROVIDERS: ATTEND Orthopaedic Surgery
DX: M43.16 Spondylolisthesis, lumbar region (principal); M47.816 Spondylosis without myelopathy or radiculopathy, lumbar region
CPT/HCPCS: 72148

== ENCOUNTER 2022-01-02 17:42 | Emergency (ER) | payer BC ==
[2022-01-02 18:16] VITALS: RESP 18; TEMP 98
[2022-01-02] MEDS ORDERED: ONDANSETRON 4 MG/2 ML VIAL IVP STA (20:35)
[2022-01-02] MEDS ORDERED: MORPHINE SULFATE 4 MG/ML SYRINGE IV STA (20:35)
[2022-01-02] MEDS ORDERED: LORazepam 2 MG/ML INJ IV STA (20:36)
--- NOTE | 2022-01-02 20:39 | ED ---
Abdominal Pain HPI - General Chief Complaint: Abdominal Pain Stated Complaint: Abd pain Time Seen by Provider: 01/02/22 20:31 Source: patient, RN notes reviewed Mode of arrival: wheelchair Limitations: no limitations - History of Present Illness Initial Comments: This is a pleasant 61-year-old female with history of asthma, diabetes mellitus, GERD, thyroid disorder, and reflex sympathetic dystrophy. Patient presents to the emergency department today complaining of 2 weeks of intermittent right lower quadrant pain which she describes as stabbing in nature. No radiation. No alleviating factors. Exacerbated by palpation. Patient also complaining of constipation. Denying any fever. Denies any nausea or vomiting. Patient states that a few years ago she had a similar type of flexion and was diagnosed with an infection in her colon. Patient previously has had a cholecystectomy and hysterectomy. Appendix is still there. Patient has seen her regular doctor 3 times over the past 2 weeks and had blood work done which she states had something wrong with the white blood cells. However she was given no medication. Patient scheduled for a CAT scan tomorrow. No headache, no fever or chills, no changes in vision or hearing, no sore throat or difficulty with speech, no neck pain, no chest pain or shortness of breath, no nausea or vomiting, no changes in urination, no numbness or tingling, no extremity pain, no skin rashes or lesions. Past medical, surgical, social, and family history reviewed. - Related Data Home Medications Medication Instructions Recorded Confirmed Dulaglutide [Trulicity] 1.5 mg SQ SUWE 07/23/17 01/02/22 Raloxifene [Evista] 60 mg PO DAILY 07/23/17 01/02/22 Sertraline [Zoloft] 100 mg PO BID 07/23/17 01/02/22 Zolpidem Tartrate [Ambien] 10 mg PO HS 01/10/18 01/02/22 traMADol HCL [Ultram] 50 mg PO TID 01/10/18 01/02/22 Azelastine HCl 1 - 2 spray EA NOSTRIL BID PRN 01/06/20 01/02/22 Ergocalciferol [Vitamin D2] 50,000 unit PO MO 01/06/20 01/02/22 Levothyroxine Sodium [Synthroid] 150 mcg PO DAILY 01/06/20 01/02/22 glipiZIDE XL [Glucotrol Xl] 5 mg PO BID 01/06/20 01/02/22 Lovastatin [Mevacor] 40 mg PO HS 01/02/22 01/02/22 Allergies Allergy/AdvReac Type Severity Reaction Status Date / Time atorvastatin [From Lipitor] Allergy Unknown Rash/Hives Verified 01/02/22 21:27 metronidazole [From Flagyl] Allergy Anaphylaxis Verified 01/02/22 21:27 naproxen [From Aleve] Allergy Swelling Verified 01/02/22 21:27 metformin AdvReac Nausea & Verified 01/02/22 21:27 Vomiting Review of Systems ROS Statement: Those systems with pertinent positive or pertinent negative responses have been documented in the HPI. ROS Other: All systems not noted in ROS Statement are negative. Past Medical History Past Medical History: Asthma, Diabetes Mellitus, GERD/Reflux, Thyroid Disorder Additional Past Medical History / Comment(s): CHRONIC PAIN SYNDROME (NO RX AT THIS TIME) ,CHRONIC BACK, SACRUM & CERVICAL PAIN. History of Any Multi-Drug Resistant Organisms: None Reported Past Surgical History: Cholecystectomy, Hysterectomy Additional Past Surgical History / Comment(s): LAPAROSCOPIC SURERY X3 , 4 NERVE BLOCKS FOR CHRONIC PAIN SYNDROME. Past Anesthesia/Blood Transfusion Reactions: No Reported Reaction, Motion Sickness Additional Past Anesthesia/Blood Transfusion Reaction / Comment(s): HX OF BLOOD TRANSFUSION (1983- NO REACTION) Past Psychological History: Anxiety, Depression Smoking Status: Never smoker Past Alcohol Use History: None Reported Past Drug Use History: None Reported - Past Family History Mother Family Medical History: Cancer Additional Family Medical History / Comment(s): UTERINE CANCER Father Family Medical History: Cancer Additional Family Medical History / Comment(s): MESOTHELIOMA Brother(s) Family Medical History: Cancer Additional Family Medical History / Comment(s): MELANOMA Son(s) Family Medical History: Cancer Additional Family Medical History / Comment(s): MELANOMA General Exam - General Exam Comments Initial Comments: Vision does not appear to be ill or toxic. Patient is in distress secondary to pain. Vital signs stable, patient afebrile. Cranial nerves II through XII grossly intact Limitations: no limitations General appearance: alert, in no apparent distress Head exam: Present: atraumatic, normocephalic, normal inspection Eye exam: Present: normal appearance, PERRL, EOMI. Absent: scleral icterus, conjunctival injection, periorbital swelling ENT exam: Present: normal exam, normal oropharynx, mucous membranes moist, normal external ear exam. Absent: mucous membranes dry Neck exam: Present: normal inspection, full ROM. Absent: tenderness, meningismus, lymphadenopathy Respiratory exam: Present: normal lung sounds bilaterally. Absent: respiratory distress, wheezes, rales, rhonchi, stridor Cardiovascular Exam: Present: regular rate, normal rhythm, normal heart sounds. Absent: systolic murmur, diastolic murmur, rubs, gallop, clicks GI/Abdominal exam: Present: soft, tenderness (Right lower quadrant and suprapubic area), guarding, normal bowel sounds. Absent: distended, rebound, rigid Extremities exam: Present: normal inspection, full ROM, normal capillary refill. Absent: tenderness, pedal edema, joint swelling, calf tenderness Back exam: Present: normal inspection Neurological exam: Present: alert, oriented X3, CN II-XII intact Psychiatric exam: Present: normal affect, normal mood Skin exam: Present: warm, dry, intact, normal color. Absent: rash Course Vital Signs 01/02/22 01/02/22 18:13 23:11 Temperature 98 F Pulse Rate 83 71 Respiratory 18 18 Rate Blood Pressure 123/86 113/68 O2 Sat by Pulse 97 95 Oximetry - Reevaluation(s) Reevaluation #1: 01/02/22 23:24 Medical record is reviewed Symptoms are improved here in the emergency department Patient is informed of results and questions answered Patient in no distress Medical Decision Making - Medical Decision Making Right lower quadrant pain for 2 weeks. Given the length of the patient's symptomology and the fact she has a computed tomography scan ordered tomorrow going to order the computed tomography scan. Does not appear to be consistent with appendicitis although this is within the differential. Diverticulitis also possible as patient does have some suprapubic tenderness. Other inflammatory versus infectious etiology possible. Does not appear to be consistent with a mass on physical examination. Doesn't fit the clinical picture of ureteral colic. Not consistent with cardiopulmonary disease. No pulsatile mass. Does not appear to be vascular in etiology. Computed tomography scan shows a hepatic cyst with mild splenomegaly. No evidence of acute pathology which would cause the patient's right lower quadrant pain. She does inform me that she's been using Imodium to treat her constipation. We'll have her stop this medication and use magnesium citrate. Rest of the patient's workup was essentially negative. Mild elevation of hepatic enzymes. This can be monitored by her regular doctor. All findings discussed with the patient. All questions answered. Patient was told to return to the ER for any signs or symptoms worsen. Told to return immediately if any other problems arise. All questions answered. Treatment plan discussed. Patient in agreement Every effort has been made to ensure accuracy of this dictation. However, due to the limitations of electronic medical records and dictation devices, errors in charting still occur. Cart Pusher Dr. Ellington - Lab Data Result diagrams: 01/02/22 21:02 01/02/22 21:02 Lab Results 01/02/22 01/02/22 01/02/22 Range/Units 21:02 21:02 21:02 WBC 6.9 (3.8-10.6) k/uL RBC 4.90 (3.80-5.40) m/uL Hgb 14.3 (11.4-16.0) gm/dL Hct 43.1 (34.0-46.0) % MCV 87.9 (80.0-100.0) fL MCH 29.3 (25.0-35.0) pg MCHC 33.3 (31.0-37.0) g/dL RDW 12.7 (11.5-15.5) % Plt Count 153 (150-450) k/uL MPV 6.9 Neutrophils % 61 % Lymphocytes % 28 % Monocytes % 6 % Eosinophils % 2 % Basophils % 1 % Neutrophils # 4.2 (1.3-7.7) k/uL Lymphocytes # 2.0 (1.0-4.8) k/uL Monocytes # 0.4 (0-1.0) k/uL Eosinophils # 0.1 (0-0.7) k/uL Basophils # 0.0 (0-0.2) k/uL Sodium 137 (137-145) mmol/L Potassium 4.3 (3.5-5.1) mmol/L Chloride 100 (98-107) mmol/L Carbon Dioxide 25 (22-30) mmol/L Anion Gap 12 mmol/L BUN 15 (7-17) mg/dL Creatinine 0.82 (0.52-1.04) mg/dL Est GFR (CKD-EPI)AfAm 89 (>60 ml/min/1.73 sqM) Est GFR (CKD-EPI)NonAf 77 (>60 ml/min/1.73 sqM) Glucose 116 H (74-99) mg/dL Plasma Lactic Acid Yosvany 0.7 (0.7-2.0) mmol/L Calcium 10.1 (8.4-10.2) mg/dL Total Bilirubin 0.5 (0.2-1.3) mg/dL AST 67 H (14-36) U/L ALT 51 H (4-34) U/L Alkaline Phosphatase 153 H (38-126) U/L Total Protein 8.3 H (6.3-8.2) g/dL Albumin 4.8 (3.5-5.0) g/dL Lipase 106 (23-300) U/L Urine Color Urine Appearance (Clear) Urine pH (5.0-8.0) Ur Specific [place] (1.001-1.035) Urine Protein (Negative) Urine Glucose (UA) (Negative) Urine Ketones (Negative) Urine Blood (Negative) Urine Nitrite (Negative) Urine Bilirubin (Negative) Urine Urobilinogen (<2.0) mg/dL Ur Leukocyte Esterase (Negative) 01/02/22 Range/Units 22:35 WBC (3.8-10.6) k/uL RBC (3.80-5.40) m/uL Hgb (11.4-16.0) gm/dL Hct (34.0-46.0) % MCV (80.0-100.0) fL MCH (25.0-35.0) pg MCHC (31.0-37.0) g/dL RDW (11.5-15.5) % Plt Count (150-450) k/uL MPV Neutrophils % % Lymphocytes % % Monocytes % % Eosinophils % % Basophils % % Neutrophils # (1.3-7.7) k/uL Lymphocytes # (1.0-4.8) k/uL Monocytes # (0-1.0) k/uL Eosinophils # (0-0.7) k/uL Basophils # (0-0.2) k/uL Sodium (137-145) mmol/L Potassium (3.5-5.1) mmol/L Chloride (98-107) mmol/L Carbon Dioxide (22-30) mmol/L Anion Gap mmol/L BUN (7-17) mg/dL Creatinine (0.52-1.04) mg/dL Est GFR (CKD-EPI)AfAm (>60 ml/min/1.73 sqM) Est GFR (CKD-EPI)NonAf (>60 ml/min/1.73 sqM) Glucose (74-99) mg/dL Plasma Lactic Acid Yosvany (0.7-2.0) mmol/L Calcium (8.4-10.2) mg/dL Total Bilirubin (0.2-1.3) mg/dL AST (14-36) U/L ALT (4-34) U/L Alkaline Phosphatase (38-126) U/L Total Protein (6.3-8.2) g/dL Albumin (3.5-5.0) g/dL Lipase (23-300) U/L Urine Color Yellow Urine Appearance Clear (Clear) Urine pH 5.5 (5.0-8.0) Ur Specific [place] 1.046 H (1.001-1.035) Urine Protein Negative (Negative) Urine Glucose (UA) Negative (Negative) Urine Ketones Negative (Negative) Urine Blood Negative (Negative) Urine Nitrite Negative (Negative) Urine Bilirubin Negative (Negative) Urine Urobilinogen <2.0 (<2.0) mg/dL Ur Leukocyte Esterase Negative (Negative) Disposition Clinical Impression: Abdominal pain, Constipation Disposition: HOME SELF-CARE Condition: Good Instructions (If sedation given, give patient instructions): Abdominal Pain (ED), Constipation (ED) Additional Instructions: Medical record is reviewed Symptoms are improved here in the emergency department Patient is informed of results and questions answered Patient in no distress Is patient prescribed a controlled substance at d/c from ED?: No Referrals: Rachel Duval DO [REFERRING] - 1-2 days Time of Disposition: 23:26
[2022-01-02 21:18] LABS: Basophils % (A) 1 %; Eosinophils # (A) 0.1 k/uL (0-0.7); Eosinophils % (A) 2 %; HCT 43.1 % (34.0-46.0); HGB 14.3 gm/dL (11.4-16.0); Lymphocytes % (A) 28 %; MCH 29.3 pg (25.0-35.0); MCHC 33.3 g/dL (31.0-37.0); MCV 87.9 fL (80.0-100.0); Mean Platelet Volume 6.9; Monocytes # (A) 0.4 k/uL (0-1.0); Monocytes % (A) 6 %; Neutrophils # (A) 4.2 k/uL (1.3-7.7); Neutrophils % (A) 61 %; Platelet Count 153 k/uL (150-450); RDW 12.7 % (11.5-15.5); WBC 6.9 k/uL (3.8-10.6)
[2022-01-02 21:27] LABS: Albumin 4.8 g/dL (3.5-5.0); Calcium 10.1 mg/dL (8.4-10.2); Potassium 4.3 mmol/L (3.5-5.1); Total Bilirubin 0.5 mg/dL (0.2-1.3); Total Protein 8.3 g/dL (6.3-8.2)
--- NOTE | 2022-01-02 22:11 | CT ---
EXAMINATION TYPE: CT abdomen pelvis w con DATE OF EXAM: 01/02/2022 COMPARISON: HISTORY: RLQ pain, weightloss CT DLP: 1034.5 mGycm Automated exposure control for dose reduction was used. CONTRAST: Performed with IV Contrast, patient injected with 100 mL of Isovue 300. CT scan images of obtained from the diaphragm to the floor of the pelvis with the IV contrast. The lung bases show mild increased interstitial density. No pulmonary consolidation. Heart size is no rmal. No pericardial effusion. There is 5.5 cm cyst in the right lobe of the liver. The bile ducts are not dilated. Spleen is large and measures 14 cm. No pancreatic mass. The stomach is intact. Gallbladder appears absent. There is n o adrenal mass. Kidneys show satisfactory contrast opacification. There is no hydronephrosis. Ureters are not dilated. There is no retroperitoneal adenopathy. There are sigmoid diverticula without diver ticulitis. No inguinal hernia. Bladder distends smoothly. There is hysterectomy. No pelvic mass. Appendix appears normal. There is no mesenteric edema. No ascites or free air. No sign of a bowel obstruction. The lumbar vert ebrae have normal alignment. There is vacuum disc throughout the lumbar spine with multilevel degener ative disc space narrowing and spur formation. No compression fracture. The bony pelvis is intact. IMPRESSION: Large hepatic cyst without change. Mild splenomegaly which is improved compared to old exam. No acute abnormality in the abdomen pelvis. Lumbar spondylotic changes that have progressed compared to old e xam.
[2022-01-02 22:49] LABS: Appearance,Urine Clear (Clear); Bilirubin,Urine Negative (Negative); Blood,Urine Negative (Negative); Color,Urine Yellow; Glucose,Urine (UA) Negative (Negative); Ketones,Urine Negative (Negative); Leukocyte Esterase,Urine Negative (Negative); Nitrite,Urine Negative (Negative); PH, Urine 5.5 (5.0-8.0); Protein,Urine Negative (Negative); Urobilinogen,Urine <2.0 mg/dL (<2.0)
[2022-01-02 23:01] LABS: Specific Gravity,Urine 1.046 (1.001-1.035)
[2022-01-02 23:12] VITALS: BP 113/68; PULSE 71
== END 2022-01-02 23:58 | disposition home or self-care (01) ==
LOC: EC 17:42
DX: R10.31 Right lower quadrant pain (principal); K59.00 Constipation, unspecified; J45.909 Unspecified asthma, uncomplicated; E11.9 Type 2 diabetes mellitus without complications; K21.9 Gastro-esophageal reflux disease without esophagitis; E07.9 Disorder of thyroid, unspecified; Z79.899 Other long term (current) drug therapy; Z88.8 Allergy status to other drugs, medicaments and biological substances; Z88.6 Allergy status to analgesic agent; Z79.84 Long term (current) use of oral hypoglycemic drugs; Z79.890 Hormone replacement therapy; Z90.49 Acquired absence of other specified parts of digestive tract
CPT/HCPCS: 36415; 80053; 83605; 83690; 85025; 81003; 74177; 99284; 96374; 96375; J2060; J2270; J2405; Q9967

== ENCOUNTER 2023-03-06 15:31 | Emergency (ER) | payer BC ==
[2023-03-06 16:03] VITALS: RESP 18
--- NOTE | 2023-03-06 16:38 | ED ---
Abdominal Pain HPI - General Chief Complaint: Abdominal Pain Stated Complaint: Appendix Time Seen by Provider: 03/06/23 16:09 Source: patient Mode of arrival: wheelchair Limitations: no limitations - History of Present Illness Initial Comments: 62-year-old female with a past medical history significant for hypertension, type 2 diabetes and past surgical history significant for cholecystectomy and hysterectomy present to the ED with a chief complaint of abdominal pain. Patient states for the past 12 days has had right lower abdominal pain with associated chills, nausea, and vomiting. Since onset, reports symptoms have worsened in severity. For this, saw her PCP or Dr. Pattreson, who is her to present to the ED for further evaluation. Denies fevers. Denies diarrhea. Denies blood in the stool. No chest pain or shortness of breath. No other co mplaints. - Related Data Home Medications Medication Instructions Recorded Confirmed Dulaglutide [Trulicity] 1.5 mg SQ SUWE 07/23/17 03/06/23 Raloxifene [Evista] 60 mg PO DAILY 07/23/17 03/06/23 Sertraline [Zoloft] 100 mg PO BID 07/23/17 03/06/23 Zolpidem Tartrate [Ambien] 10 mg PO HS 01/10/18 03/06/23 traMADol HCL [Ultram] 50 mg PO TID 01/10/18 03/06/23 Azelastine HCl [Astelin Nasal 1 - 2 spray EA NOSTRIL BID PRN 01/06/20 03/06/23 [place]] Levothyroxine Sodium [Synthroid] 150 mcg PO DAILY 01/06/20 03/06/23 glipiZIDE XL [Glucotrol Xl] 5 mg PO BID 01/06/20 03/06/23 Aspirin EC [Ecotrin Low Dose] 81 mg PO DAILY 03/06/23 03/06/23 Ergocalciferol [Vitamin D2 (1250 1,250 mcg PO MO 03/06/23 03/06/23 Mcg = 19883 Iu)] Pregabalin [Lyrica] 150 mg PO BID 03/06/23 03/06/23 Allergies Allergy/AdvReac Type Severity Reaction Status Date / Time atorvastatin [From Lipitor] Allergy Unknown Rash/Hives Verified 03/06/23 16:22 metronidazole [From Flagyl] Allergy Anaphylaxis Verified 03/06/23 16:22 naproxen [From Aleve] Allergy Swelling Verified 03/06/23 16:22 metformin AdvReac Nausea & Verified 03/06/23 16:22 Vomiting Review of Systems ROS Statement: Those systems with pertinent positive or pertinent negative responses have been documented in the HPI. ROS Other: All systems not noted in ROS Statement are negative. Past Medical History Past Medical History: Asthma, Diabetes Mellitus, GERD/Reflux, Thyroid Disorder Additional Past Medical History / Comment(s): CHRONIC PAIN SYNDROME (NO RX AT THIS TIME) ,CHRONIC BACK, SACRUM & CERVICAL PAIN. History of Any Multi-Drug Resistant Organisms: None Reported Past Surgical History: Cholecystectomy, Hysterectomy Additional Past Surgical History / Comment(s): LAPAROSCOPIC SURERY X3 , 4 NERVE BLOCKS FOR CHRONIC PAIN SYNDROME. Past Anesthesia/Blood Transfusion Reactions: No Reported Reaction, Motion Sickness Additional Past Anesthesia/Blood Transfusion Reaction / Comment(s): HX OF BLOOD TRANSFUSION (1983- NO REACTION) Past Psychological History: Anxiety, Depression Smoking Status: Never smoker Past Alcohol Use History: None Reported Past Drug Use History: None Reported - Past Family History Mother Family Medical History: Cancer Additional Family Medical History / Comment(s): UTERINE CANCER Father Family Medical History: Cancer Additional Family Medical History / Comment(s): MESOTHELIOMA Brother(s) Family Medical History: Cancer Additional Family Medical History / Comment(s): MELANOMA Son(s) Family Medical History: Cancer Additional Family Medical History / Comment(s): MELANOMA General Exam Limitations: no limitations General appearance: alert, in no apparent distress Neck exam: Present: normal inspection Respiratory exam: Present: normal lung sounds bilaterally Cardiovascular Exam: Present: regular rate, normal rhythm GI/Abdominal exam: Present: rigid (Tenderness to palpation in the right lower quadrant. Negative Rovsing sign. Positive obturator sign.) Extremities exam: Present: normal inspection Neurological exam: Present: alert, oriented X3 Skin exam: Present: warm, dry Course Vital Signs 03/06/23 15:47 Temperature 98 F Pulse Rate 83 Respiratory 18 Rate Blood Pressure 126/70 O2 Sat by Pulse 97 Oximetry Medical Decision Making - Medical Decision Making Was pt. sent in by a medical professional or institution (, PA, PACKERHEAD MACHINE OPERATOR, urgent care, hospital, or senior living...) When possible be specific @ -No Did you speak to anyone other than the patient for history (EMS, parent, family, police, friend...)? What history was obtained from this source @ -No Did you review nursing and triage notes (agree or disagree)? Why? @ -I reviewed and agree with nursing and triage notes Were old charts reviewed (outside hosp., previous admission, EMS record, old EKG, old radiological studies, urgent care reports/EKG's, senior living records)? Report findings @ -No old charts were reviewed Differential Diagnosis (chest pain, altered mental status, abdominal pain women, abdominal pain men, vaginal bleeding, weakness, fever, dyspnea, syncope, headache, dizziness, GI bleed, back pain, seizure, CVA, palpatations, mental health, musculoskeletal)? @ -Differential Abdominal Pain Women: Appendicitis, Cholecystitis, diverticulosis, ischemic bowel, pancreatitis, hepatitis, UTI, gastroenteritis, AAA, incarcerated hernia, bowel obstruction, constipation, inflammatory bowel, hepatitis, peptic ulcer disease, splenic infarction, perforated viscus, vulvitis, ovarian torsion, PID, kidney stone, placenta abruption, this is not meant to be an all-inclusive list EKG interpreted by me (3pts min.). @ -As above X-rays interpreted by me (1pt min.). @ -None done CT interpreted by me (1pt min.). @ -CT abdomen and pelvis interpreted by me showing no evidence of acute process . U/S interpreted by me (1pt. min.). @ -None done What testing was considered but not performed or refused? (CT, X-rays, U/S, labs)? Why? @ -None What meds were considered but not given or refused? Why? @ -None Did you discuss the management of the patient with other professionals (professionals i.e. , PA, PACKERHEAD MACHINE OPERATOR, lab, RT, psych nurse, social services director, transit department clerk, teacher, forestry technical officer, immigration case worker)? Give summary @ -No Was smoking cessation discussed for >3mins.? @ -No Was critical care preformed (if so, how long)? @ -No Were there social determinants of health that impacted care today? How? (Homelessness, low income, unemployed, alcoholism, drug addiction, transportation, low edu. Level, literacy, decrease access to med. care, retirement, rehab)? @ -No Was there de-escalation of care discussed even if they declined (Discuss DNR or withdrawal of care, Hospice)? DNR status @ -No What co-morbidities impacted this encounter? (DM, HTN, Smoking, COPD, CAD, Cancer, CVA, ARF, Chemo, Hep., AIDS, mental health diagnosis, sleep apnea, morbid obesity)? @ -None Was patient admitted / discharged? Hospital course, mention meds given and route, prescriptions, significant lab abnormalities, going to OR and other pertinent info. @ -Discharge 62-year-old female resents to the ED with a chief complaint of abdominal pain with associated nausea and vomiting for the past 12 days. Laboratory studies including CBC, CMP, amylase, lipase, UA largely unremarkable. CT abdomen and pelvis showed no evidence of acute process. Patient discharged home in stable condition. Advised follow up with PCP/GI. Discussed return precautions patient verbalizes agreement. Undiagnosed new problem with uncertain prognosis? @ -No Drug Therapy requiring intensive monitoring for toxicity (Heparin, Nitro, Insulin, Cardizem)? @ -No Were any procedures done? @ -No Diagnosis/symptom? @ -Abdominal pain Acute, or Chronic, or Acute on Chronic? @ -Acute Uncomplicated (without systemic symptoms) or Complicated (systemic symptoms)? @ -Uncomplicated Side effects of treatment? @ -No Exacerbation, Progression, or Severe Exacerbation? @ -No Poses a threat to life or bodily function? How? (Chest pain, [place], [place], pneumonia, PE, COPD, DKA, ARF, appy, cholecystitis, CVA, Diverticulitis, Homicidal, Suicidal, threat to staff... and all critical care pts) @ -No - Lab Data Result diagrams: 03/06/23 17:59 03/06/23 17:59 Lab Results 03/06/23 03/06/23 03/06/23 Range/Units 17:59 17:59 17:59 WBC 6.4 (3.8-10.6) k/uL RBC 4.77 (3.80-5.40) m/uL Hgb 14.3 (11.4-16.0) gm/dL Hct 41.6 (34.0-46.0) % MCV 87.3 (80.0-100.0) fL MCH 30.0 (25.0-35.0) pg MCHC 34.4 (31.0-37.0) g/dL RDW 12.9 (11.5-15.5) % Plt Count 139 L (150-450) k/uL MPV 7.0 Neutrophils % 56 % Lymphocytes % 34 % Monocytes % 6 % Eosinophils % 2 % Basophils % 1 % Neutrophils # 3.6 (1.3-7.7) k/uL Lymphocytes # 2.2 (1.0-4.8) k/uL Monocytes # 0.4 (0-1.0) k/uL Eosinophils # 0.1 (0-0.7) k/uL Basophils # 0.0 (0-0.2) k/uL PT (9.0-12.0) sec INR (<1.2) APTT (22.0-30.0) sec Sodium 138 (137-145) mmol/L Potassium 4.1 (3.5-5.1) mmol/L Chloride 107 (98-107) mmol/L Carbon Dioxide 23 (22-30) mmol/L Anion Gap 8 mmol/L BUN 20 H (7-17) mg/dL Creatinine 0.75 (0.52-1.04) mg/dL Est GFR (CKD-EPI)AfAm >90 (>60 ml/min/1.73 sqM) Est GFR (CKD-EPI)NonAf 85 (>60 ml/min/1.73 sqM) Glucose 81 (74-99) mg/dL Calcium 9.6 (8.4-10.2) mg/dL Total Bilirubin 0.5 (0.2-1.3) mg/dL AST 40 H (14-36) U/L ALT 30 (4-34) U/L Alkaline Phosphatase 109 (38-126) U/L Troponin I 0.022 (0.000-0.034) ng/mL Total Protein 7.7 (6.3-8.2) g/dL Albumin 4.4 (3.5-5.0) g/dL Amylase 75 (30-110) U/L Lipase 141 (23-300) U/L Urine Color Urine Appearance (Clear) Urine pH (5.0-8.0) Ur Specific [place] (1.001-1.035) Urine Protein (Negative) Urine Glucose (UA) (Negative) Urine Ketones (Negative) Urine Blood (Negative) Urine Nitrite (Negative) Urine Bilirubin (Negative) Urine Urobilinogen (<2.0) mg/dL Ur Leukocyte Esterase (Negative) Blood Type Blood Type Recheck Bld Type Recheck Status Antibody Screen Spec Expiration Date 03/06/23 03/06/23 03/06/23 Range/Units 17:59 18:28 19:11 WBC (3.8-10.6) k/uL RBC (3.80-5.40) m/uL Hgb (11.4-16.0) gm/dL Hct (34.0-46.0) % MCV (80.0-100.0) fL MCH (25.0-35.0) pg MCHC (31.0-37.0) g/dL RDW (11.5-15.5) % Plt Count (150-450) k/uL MPV Neutrophils % % Lymphocytes % % Monocytes % % Eosinophils % % Basophils % % Neutrophils # (1.3-7.7) k/uL Lymphocytes # (1.0-4.8) k/uL Monocytes # (0-1.0) k/uL Eosinophils # (0-0.7) k/uL Basophils # (0-0.2) k/uL PT 10.8 (9.0-12.0) sec INR 1.0 (<1.2) APTT 23.2 (22.0-30.0) sec Sodium (137-145) mmol/L Potassium (3.5-5.1) mmol/L Chloride (98-107) mmol/L Carbon Dioxide (22-30) mmol/L Anion Gap mmol/L BUN (7-17) mg/dL Creatinine (0.52-1.04) mg/dL Est GFR (CKD-EPI)AfAm (>60 ml/min/1.73 sqM) Est GFR (CKD-EPI)NonAf (>60 ml/min/1.73 sqM) Glucose (74-99) mg/dL Calcium (8.4-10.2) mg/dL Total Bilirubin (0.2-1.3) mg/dL AST (14-36) U/L ALT (4-34) U/L Alkaline Phosphatase (38-126) U/L Troponin I (0.000-0.034) ng/mL Total Protein (6.3-8.2) g/dL Albumin (3.5-5.0) g/dL Amylase (30-110) U/L Lipase (23-300) U/L Urine Color Yellow Urine Appearance Clear (Clear) Urine pH 5.5 (5.0-8.0) Ur Specific [place] 1.024 (1.001-1.035) Urine Protein Negative (Negative) Urine Glucose (UA) Negative (Negative) Urine Ketones Negative (Negative) Urine Blood Negative (Negative) Urine Nitrite Negative (Negative) Urine Bilirubin Negative (Negative) Urine Urobilinogen <2.0 (<2.0) mg/dL Ur Leukocyte Esterase Negative (Negative) Blood Type O Positive Blood Type Recheck No Previous Record Bld Type Recheck Status CABO Indicated Antibody Screen NEGATIVE Spec Expiration Date 03/09/20232327 Disposition Clinical Impression: Abdominal pain Disposition: HOME SELF-CARE Condition: Poor Instructions (If sedation given, give patient instructions): Abdominal Pain (ED) Additional Instructions: Please return to the Emergency Department if symptoms worsen or any other concerns. Is patient prescribed a controlled substance at d/c from ED?: No Referrals: Chris Duval MD [Primary Care Provider] - 1-2 days Time of Disposition: 20:14
[2023-03-06] MEDS ORDERED: SODIUM CHLORIDE 0.9% 1,000 ML IV STA (16:40)
[2023-03-06] MEDS ORDERED: ONDANSETRON 4 MG/2 ML VIAL IVP STA ×2 (16:40→19:40)
[2023-03-06] MEDS ORDERED: KETOROLAC 15 MG/ML 1 ML VIAL IVP STA (16:40)
[2023-03-06 18:13] LABS: Basophils % (A) 1 %; Eosinophils # (A) 0.1 k/uL (0-0.7); Eosinophils % (A) 2 %; HCT 41.6 % (34.0-46.0); HGB 14.3 gm/dL (11.4-16.0); Lymphocytes # (A) 2.2 k/uL (1.0-4.8); Lymphocytes % (A) 34 %; MCHC 34.4 g/dL (31.0-37.0); MCV 87.3 fL (80.0-100.0); Monocytes # (A) 0.4 k/uL (0-1.0); Monocytes % (A) 6 %; Neutrophils # (A) 3.6 k/uL (1.3-7.7); Neutrophils % (A) 56 %; Platelet Count 139 k/uL (150-450); RBC 4.77 m/uL (3.80-5.40); RDW 12.9 % (11.5-15.5); WBC 6.4 k/uL (3.8-10.6)
[2023-03-06 18:30] LABS: ALT 30 U/L (4-34); AST 40 U/L (14-36); African American GFR (CKD) >90 (>60 ml/min/1.73 sqM); Albumin 4.4 g/dL (3.5-5.0); Alkaline Phosphatase 109 U/L (38-126); Amylase 75 U/L (30-110); Anion Gap 8 mmol/L; Blood Urea Nitrogen 20 mg/dL (7-17); Calcium 9.6 mg/dL (8.4-10.2); Carbon Dioxide 23 mmol/L (22-30); Chloride 107 mmol/L (98-107); Glucose 81 mg/dL (74-99); Lipase 141 U/L (23-300); Non-African American GFR(CKD) 85 (>60 ml/min/1.73 sqM); Potassium 4.1 mmol/L (3.5-5.1); Sodium 138 mmol/L (137-145); Total Bilirubin 0.5 mg/dL (0.2-1.3); Total Protein 7.7 g/dL (6.3-8.2)
[2023-03-06 18:50] LABS: Partial Thromboplastin Time 23.2 sec (22.0-30.0); Prothrombin Time 10.8 sec (9.0-12.0)
[2023-03-06 19:23] LABS: Appearance,Urine Clear (Clear); Bilirubin,Urine Negative (Negative); Blood,Urine Negative (Negative); Color,Urine Yellow; Glucose,Urine (UA) Negative (Negative); Ketones,Urine Negative (Negative); Leukocyte Esterase,Urine Negative (Negative); Nitrite,Urine Negative (Negative); PH, Urine 5.5 (5.0-8.0); Protein,Urine Negative (Negative); Specific Gravity,Urine 1.024 (1.001-1.035); Urobilinogen,Urine <2.0 mg/dL (<2.0)
--- NOTE | 2023-03-06 19:26 | CT ---
EXAMINATION TYPE: CT abdomen pelvis w con CT DLP: 850 mGycm, Automated exposure control for dose reduction was used. DATE OF EXAM: 03/06/2023 7:04 PM COMPARISON: CT abdomen pelvis most recent from 01/02/2022 CLINICAL INDICATION:Female, 62 years old with history of r/o appy; RLQ abdominal pain x 12 days. TECHNIQUE: Axial CT of the abdomen and pelvis. Sagittal and coronal reformats were created on a [employer] workstation. Contrast used:100 cc mL of Isovue 300 with IV Contrast, (none if empty) Oral contrast used: without Oral Contrast (none if empty) FINDINGS: LOWER CHEST: Unremarkable ABDOMEN LIVER: Similar hepatic cyst. GALLBLADDER AND BILE DUCTS: Unremarkable. PANCREAS: Lipomatous pseudohypertrophy changes. SPLEEN: Spleen is enlarged for size measuring up to 16.2 cm. ADRENAL GLANDS: Unremarkable. KIDNEYS AND URETERS: No evidence of hydronephrosis or renal calculus. The ureters are unremarkable. PELVIS BLADDER: Unremarkable REPRODUCTIVE: The uterus is surgically absent. ABDOMEN & PELVIS STOMACH AND BOWEL: No evidence of bowel obstruction. The appendix is visualized and normal. Scattered colonic diverticula. There is a large amount stool in the colon and ascending colon. Short segment o f nondistention with wall thickening measuring 6 mm in the hepatic flexure is new. PERITONEUM/RETROPERITONEUM: No evidence of pneumoperitoneum or free fluid. VASCULATURE: No evidence of aortic aneurysm. MUSCULOSKELETAL: No acute osseous abnormalities LYMPH NODES: No gross evidence for lymphadenopathy. SOFT TISSUE/ABDOMINAL WALL: Fat-containing umbilical hernia. IMPRESSION: 1. Appendix is normal. 2. Short segment of colonic wall thickening in the hepatic flexure. Further evaluation with colonosc opy is recommended if not recently performed throughout adenocarcinoma. 3. Colonic diverticulosis. 4. Splenomegaly which is mildly progressed from prior on 01/02/2022.
[2023-03-06] MEDS ORDERED: MORPHINE SULFATE 4 MG/ML SYRINGE IVP STA (19:40)
[2023-03-06] MEDS ORDERED: ACET/COD 300 MG/30 MG STARTER PACK 6 TAB BTL PO STA (20:14)
[2023-03-06 20:44] VITALS: BP 136/71; PULSE 74; TEMP 98.1
== END 2023-03-06 20:41 | disposition home or self-care (01) ==
LOC: EC 15:31
DX: K57.30 Diverticulosis of large intestine without perforation or abscess without bleeding (principal); J45.909 Unspecified asthma, uncomplicated; E11.9 Type 2 diabetes mellitus without complications; K21.9 Gastro-esophageal reflux disease without esophagitis; E07.9 Disorder of thyroid, unspecified; F41.9 Anxiety disorder, unspecified; F32.A Depression, unspecified; Z79.890 Hormone replacement therapy; Z79.899 Other long term (current) drug therapy; Z88.5 Allergy status to narcotic agent; Z88.8 Allergy status to other drugs, medicaments and biological substances
CPT/HCPCS: 36415; 86900; 86901; 80053; 82150; 83690; 84484; 85025; 85610; 85730; 86850; 81003; 74177; 99284; 96374; 96376; 96375 ×2; 96361; J2270; J2405; J1885; Q9967

== ENCOUNTER → 2023-04-01 | Day surgery (SDC) | payer BC ==
[2023-03-29 12:15] VITALS: BMI 23.6
[~2023-04-01] MED LIST changes: +PROPOFOL 10 MG/ML 20 ML VIAL IV ONE
[2023-04-01 11:53] LABS: Glucose,Whole Blood 153 mg/dL (70-110)
[2023-04-01 12:06] VITALS: TEMP 97.8
--- NOTE | 2023-04-01 13:04 | P.OP ---
Date of Procedure: 04/01/23 Preoperative Diagnosis: Abdominal pain, right lower quadrant pain Postoperative Diagnosis: Mild diverticulosis Procedure(s) Performed: Colonoscopy Anesthesia: MAC Pathology: none sent Condition: stable Disposition: PACU Description of Procedure: The patient's placed on the endoscopy table in the lateral position. She rece ived IV sedation. Digital rectal exam was performed. This revealed no abnormalities. The possible colonoscope was then placed patient anus and passed throughout the entire colon. The ileocecal valve was visualized. The cecum, ascending and transverse colon appeared normal. In the descending; a few scattered diverticuli. The scope was brought back the rectum this appeared normal. Scope withdrawn for patient.
[2023-04-01 14:06] VITALS: BP 128/70; PULSE 70; RESP 14
== END ==
LOC: ORWHC2ENDO 11:28
PROVIDERS: ATTEND Surgery
DX: K57.30 Diverticulosis of large intestine without perforation or abscess without bleeding (principal); J45.909 Unspecified asthma, uncomplicated; E11.9 Type 2 diabetes mellitus without complications; E07.9 Disorder of thyroid, unspecified; G89.29 Other chronic pain; F41.9 Anxiety disorder, unspecified; F32.A Depression, unspecified; Z79.890 Hormone replacement therapy; Z88.8 Allergy status to other drugs, medicaments and biological substances; Z88.6 Allergy status to analgesic agent; Z79.899 Other long term (current) drug therapy
CPT/HCPCS: 45378; J2704

== ENCOUNTER 2023-04-22 07:17 | Observation (INO) | payer BC ==
[~2023-04-22 07:17] MED LIST changes: +DEXAMETHASONE SOD PHOSPHATE 4 MG/ML 1 ML VIAL IV ONE; +HYDROmorphone 0.5 MG/0.5 ML SYRINGE IVP PRN; -LACTATED RINGERS 1,000 ML IV SCH; +LIDOCAINE 1% (10MG/ML) FOR IV START INTRADERMA PRN; +ONDANSETRON 4 MG/2 ML VIAL IVP ONE; -PROPOFOL 10 MG/ML 20 ML VIAL IV ONE; +droPERidol 5 MG/2 ML VIAL IVP PRN
[2023-04-22 08:10] LABS: Glucose,Whole Blood 162 mg/dL (70-110)
[2023-04-22] MEDS: LACTATED RINGERS 1,000 ML IV SCH (08:14)
[2023-04-22] MEDS ORDERED: MIDAZOLAM 2 MG/2 ML VIAL ONE (09:24)
[2023-04-22] MEDS ORDERED: ceFAZolin 1,000 MG VIAL ONE (09:24)
[2023-04-22] MEDS ORDERED: LIDOCAINE 1% INJ 10MG/ML (20 ML MDV) ONE (09:24)
[2023-04-22] MEDS ORDERED: PHENYLEPHRINE-0.9% NACL SYG 1,000 MCG/10 ML SYRINGE ONE (09:24)
[2023-04-22] MEDS ORDERED: SUCCINYLCHOLINE CHLORIDE 200 MG/10 ML VIAL IV ONE (09:24)
[2023-04-22] MEDS ORDERED: ROCURONIUM 10 MG/ML (5 ML VIAL) IV ONE (09:24)
[2023-04-22] MEDS ORDERED: PROPOFOL 10 MG/ML 20 ML VIAL IV ONE (09:24)
[2023-04-22] MEDS ORDERED: fentaNYL (PF) 50 MCG/ML 2 ML AMP ONE (09:24)
[2023-04-22] MEDS ORDERED: BUPIVACAINE (PF) 0.25% 30 ML VIAL SQ ONE ×3 (09:26→09:44)
[2023-04-22] MEDS ORDERED: SODIUM CHLORIDE 0.9% 50 ML with ceFAZolin 2,000 MG IV ONE ×2 (09:44)
[2023-04-22] MEDS ORDERED: NALOXONE 0.4 MG/ML 1 ML VIAL IV PRN (10:40)
[2023-04-22] MEDS ORDERED: LACTATED RINGERS 1,000 ML IV ONE (10:40)
[2023-04-22] MEDS ORDERED: HYDROcodone/APAP 5-325MG 1 EACH TAB PO PRN (10:40)
[2023-04-22] MEDS ORDERED: ONDANSETRON 4 MG/2 ML VIAL IVP PRN (10:40)
--- NOTE | 2023-04-22 10:40 | P.OP ---
Date of Procedure: 04/22/23 Preoperative Diagnosis: Adhesions Right lower quadrant pain Postoperative Diagnosis: Adhesions Appendicitis Right lower quadrant pain Procedure(s) Performed: Laparoscopic lysis of adhesions Laparoscopic appendectomy Anesthesia: ABIGAIL Surgeon: Patrick Mohr Estimated Blood Loss (ml): 5 Pathology: other (Appendix) Condition: stable Disposition: PACU Description of Procedure: The patient's placed on the operative table in supine position. She received general anesthesia. Her abdomen was prepped and draped usual sterile fashion. A supraumbilical skin incision was made then using a pair of Jennifer clamps the fascia was grasped. The Veress needle was placed in the perineal cavity. Position of the Veress is confirmed with positive drop test. After adequate insufflation a 5 mm trochars placed in the pleural cavity. Next the laparoscope placed. Cavity. Another 5 mm trocar was placed in the suprapubic position and a 10 mm trochars placed in the epigastric position the peritoneal cavity was inspected. Adhesions in the right lower quadrant. These were lysed with sharp dissection. The appendix was visualized. The appendix appeared to be grossly dilated. At this point decided perform appendectomy. The mesoappendix was divided with the Harmonic scissors. And then the base the appendix was snared with the Endoloop. The appendectomy was then performed using Harmonic scissors. The pedicle placed in a 10 mm Endo Catch bag and brought out through the 10 mL trocar site. The abdomen was irrigated is no bleeding seen. At this point the trochars withdrawn. The skin was closed interrupted 3-0 Monocryl suture. Dermabond was applied. Patient top she will she was sent to recovery room in stable condition.
[2023-04-22 11:01] LABS: Glucose,Whole Blood 221 mg/dL (70-110)
[2023-04-22] MEDS ORDERED: ERGOCALCIFEROL 1,250 MCG (50,000 IU) CAPSULE PO SCH (15:00)
[2023-04-22] MEDS: RALOXIFENE 60 MG TAB PO SCH (16:08)
[2023-04-22] MEDS: LEVOTHYROXINE 75 MCG TAB PO SCH (16:10)
[2023-04-22] MEDS: traMADol 50 MG TAB PO SCH ×2 (17:00→22:38)
[2023-04-22] MEDS: HYDROmorphone 0.5 MG/0.5 ML SYRINGE IVP PRN ×2 (17:02→20:06)
[2023-04-22 17:13] LABS: Glucose,Whole Blood 194 mg/dL (70-110)
[2023-04-22] MEDS: glipiZIDE 5 MG TAB PO SCH (20:06)
[2023-04-22] MEDS: SERTRALINE 100 MG TAB PO SCH (20:06)
[2023-04-22] MEDS: PREGABALIN 50 MG CAP PO SCH (20:06)
[2023-04-22 20:28] LABS: Glucose,Whole Blood 213 mg/dL (70-110)
[2023-04-22] MEDS ORDERED: ZOLPIDEM 5 MG TAB PO SCH (21:00)
[2023-04-23 04:40] VITALS: RESP 16
[2023-04-23] MEDS: LACTATED RINGERS 1,000 ML IV SCH (05:48)
[2023-04-23] MEDS: LEVOTHYROXINE 75 MCG TAB PO SCH (05:56)
[2023-04-23 07:37] LABS: Glucose,Whole Blood 131 mg/dL (70-110)
[2023-04-23] MEDS ORDERED: ENOXAPARIN 40 MG/0.4 ML SYRINGE SQ SCH (09:00)
[2023-04-23] MEDS: glipiZIDE 5 MG TAB PO SCH (09:06)
[2023-04-23] MEDS: PREGABALIN 50 MG CAP PO SCH (09:06)
[2023-04-23] MEDS: traMADol 50 MG TAB PO SCH (09:06)
[2023-04-23] MEDS: RALOXIFENE 60 MG TAB PO SCH (09:06)
[2023-04-23] MEDS: SERTRALINE 100 MG TAB PO SCH (09:06)
[2023-04-23 09:32] VITALS: BP 122/67; PULSE 73; TEMP 98.1
--- NOTE | 2023-04-23 10:45 | P.DS ---
Providers Date of admission: 04/22/23 10:40 Expected date of discharge: 04/23/23 Attending physician: Patrick Mohr Consults: 04/22/23 10:40 Consult Physician Routine Consulting Provider: Chris Duval Consult Reason/Comments: Medical management Do you want consulting provider notified?: Yes Primary care physician: Chris Duval MD Hospital Course: Discharge diagnosis 1. Adhesions, appendicitis, right lower quadrant abdominal pain status post laparoscopic lysis of adhesions and laparoscopic appendectomy Hospital course This is a 62-year-old female with right lower quadrant abdominal pain. She is status post laparoscopic cholecystectomy adhesions and laparoscopic appendectomy for adhesions and appendicitis with right lower quadrant abdominal pain. Patient reports her pain is controlled. She's tolerating diet. She has been up ambulating. She is having flatus. She is afebrile. She is stable for discharge. Please refer to chart for any further details. Physician Digital Watch Assembler note has been reviewed by physician. Signing provider agrees with the documented findings, assessment, and plan of care. Patient Condition at Discharge: Stable Plan - Discharge Summary Discharge Rx Participant: Yes New Discharge Prescriptions: New Acetaminophen Tab [Tylenol] 1,000 mg PO Q6HR PRN #30 tablet PRN Reason: Pain Continue Sertraline [Zoloft] 100 mg PO BID Raloxifene [Evista] 60 mg PO DAILY traMADol HCL [Ultram] 50 mg PO TID Zolpidem Tartrate [Ambien] 10 mg PO HS glipiZIDE XL [Glucotrol XL] 5 mg PO BID Levothyroxine Sodium [Synthroid] 150 mcg PO DAILY Pregabalin [Lyrica] 50 mg PO BID Ergocalciferol [Vitamin D2 (1250 Mcg = 96429 Iu)] 1,250 mcg PO MO Dulaglutide [Trulicity] 1.5 mg SQ SUWE Discharge Medication List Raloxifene [Evista] 60 mg PO DAILY 07/23/17 [History] Sertraline [Zoloft] 100 mg PO BID 07/23/17 [History] Zolpidem Tartrate [Ambien] 10 mg PO HS 01/10/18 [History] traMADol HCL [Ultram] 50 mg PO TID 01/10/18 [History] Levothyroxine Sodium [Synthroid] 150 mcg PO DAILY 01/06/20 [History] glipiZIDE XL [Glucotrol XL] 5 mg PO BID 01/06/20 [History] Ergocalciferol [Vitamin D2 (1250 Mcg = 54776 Iu)] 1,250 mcg PO MO 03/06/23 [History] Pregabalin [Lyrica] 50 mg PO BID 03/29/23 [History] Dulaglutide [Trulicity] 1.5 mg SQ SUWE 04/19/23 [History] Acetaminophen Tab [Tylenol] 1,000 mg PO Q6HR PRN #30 tablet 04/23/23 [Rx] Follow up Appointment(s)/Referral(s): Patrick Mohr MD [STAFF PHYSICIAN] - 04/30/23 2:30 pm Patient Instructions/Handouts: *Surgery [facility] - (Anesthesia) Discharge Instructions Outpatient Surgery, Laparoscopic Appendectomy (DC), Lysis of Abdominal Adhesions (DC) Activity/Diet/Wound Care/Special Instructions: No driving while taking Ultram No lifting over 10 pounds Shower daily. No soaking or tub baths for 2 weeks Very light activity until you are reevaluated at your follow up appointment with your surgeon Discharge Disposition: HOME SELF-CARE
[2023-04-24] MEDS ORDERED: Dulaglutide [Trulicity] 1.5 MG/0.5 ML Each SQ SCH (09:00)
== END 2023-04-23 12:23 | disposition home or self-care (01) ==
LOC: OR 07:17 → 5NMEDONC 10:40 → OR 10:40 → 5NMEDONC 13:29
PROVIDERS: ADMIT Surgery; ATTEND Surgery
DX: K37 Unspecified appendicitis (principal); K66.0 Peritoneal adhesions (postprocedural) (postinfection); K38.8 Other specified diseases of appendix; J45.909 Unspecified asthma, uncomplicated; E11.9 Type 2 diabetes mellitus without complications; K21.9 Gastro-esophageal reflux disease without esophagitis; G89.4 Chronic pain syndrome; F32.A Depression, unspecified; Z79.51 Long term (current) use of inhaled steroids; Z79.84 Long term (current) use of oral hypoglycemic drugs; Z79.890 Hormone replacement therapy; Z79.899 Other long term (current) drug therapy; Z88.6 Allergy status to analgesic agent
CPT/HCPCS: 96376; 96361 ×2; 96372; 96374; 88304; 44970; G0378 ×2; J2250; J0330; J1100; J2405; J0690; J2001; J1650; J3010; J2704; J1170; J2371; J0665